=== PATIENT | female | born 1980 | race American Indian/Alaskan Native ===

== ENCOUNTER 2018-03-03 08:20 | Emergency (ER) | payer BC ==
[2018-03-03 08:28] VITALS: BP 130/67
[2018-03-03] MEDS ORDERED: TORADOL ONE (08:35)
[2018-03-03] MEDS ORDERED: NACL 0.9% 1000 ML 1,000 ML ONE (08:35)
[2018-03-03] MEDS ORDERED: ZOFRAN ONE (08:35)
[2018-03-03] MEDS ORDERED: TORADOL IV ONE (08:43)
[2018-03-03] MEDS ORDERED: ZOFRAN IV ONE (08:44)
[2018-03-03] MEDS ORDERED: NACL 0.9% 1000 ML 1,000 ML IV ONE (08:51)
[2018-03-03 09:41] LABS: Basophils # (Auto) 0.1 K/mm3 (0.0-0.1); Basophils % (Auto) 0.5 % (0.0-1.8); Eosinophils % (Auto) 0.1 % (0.0-4.3); Hematocrit 36.2 % (30.3-42.9); Hemoglobin 11.5 gm/dl (10.1-14.3); Lymphocytes # (Auto) 1.2 K/mm3 (1.2-5.4); Lymphocytes % (Auto) 11.6 % (13.4-35.0); Mean Corpuscular HGB Conc 32 % (30-34); Mean Corpuscular Volume 77 fl (79-97); Monocytes # (Auto) 0.4 K/mm3 (0.0-0.8); Monocytes % (Auto) 4.2 % (0.0-7.3); Platelet Count 317 K/mm3 (140-440); Red Blood Count 4.73 M/mm3 (3.65-5.03); Red Cell Distribution Width 13.9 % (13.2-15.2)
[2018-03-03 09:46] LABS: Mean Corpuscular Hemoglobin 24 pg (28-32)
[2018-03-03 10:02] LABS: Alanine Aminotransferase 8 units/L (7-56); Albumin 4.1 g/dL (3.9-5); BUN/Creatinine Ratio 23; Blood Urea Nitrogen 14 mg/dL (7-17); Calcium 8.5 mg/dL (8.4-10.2); Hemolysis Index 9
--- NOTE | 2018-03-03 12:46 | Emergency Department Report ---
Blank Doc - Documentation Documentation: 37-year-old female with a history of heavy painful periods presents to the hospital complaining of heavy and painful. It started yesterday. Pain acutely worsened 4:30 AM. Describes 10/10 intensity, pulling, constant, worse with palpation, no remitting factors. 6-7 episodes of vomiting since symptom onset. Told in the past her heavy periods could be due to uterine fibroids but patient has not had an ultrasound or followed up. Patient received Toradol, Zofran, normal saline prior to my evaluation reports the pain is 2/10 in intensity. Labs reviewed Orders: Ultrasound transvaginal/peelvic
--- NOTE | 2018-03-03 13:46 | Ultrasound Report ---
ULTRASOUND PELVIC COMPLETE ULTRASOUND TRANSVAGINAL HISTORY: Menorrhagia. COMPARISON: None. TECHNIQUE: Transabdominal and transvaginal ultrasound with color doppler interrogation. FINDINGS: Uterus: The uterus is anteverted and borderline enlarged measuring 10.7 x 5.7 x 6.6 cm. A 2.9 x 4.0 cm submucosal fibroid is identified in the posterior wall. A 1.7 x 1.6 cm submucosal fibroid is identified in the anterior wall. Normal cervix.. Endometrium: 3.2 mm. Right ovary: Not visualized. Left ovary: Not visualized. There is a large unilocular cyst in the left adnexa measuring up to 10.3 x 8.4 x 8.4 cm. This presumably represents a large left ovarian cyst. No pelvic fluid or mass is identified. Normal color doppler interrogation. IMPRESSION: Uterine fibroids. The ovaries are not visualized. There is a large cyst in the left adnexa which presumably represents an ovarian cyst.
--- NOTE | 2018-03-03 14:07 | Emergency Department Report ---
ED Female HPI - General Chief complaint: Abdominal Pain Stated complaint: ABDOMINAL PAIN Time Seen by Provider: 03/03/18 12:27 Source: patient Mode of arrival: Wheelchair Limitations: No Limitations - History of Present Illness Initial comments: This is a 37 y.o. female that presents with generalized abdominal pain and nausea and vomiting that started this morning around 0430. Menes started 2 days ago and reports only having severe abdominal pain during this time. States pain is 5/10 on scale and constant. Pain is worse with palpating. This morning she started to have nausea and vomiting with heavy vaginal bleeding. She was diagnosed with fibroids last year by [facility] but failed to follow-up. Denies fever, dizziness, SOB, chest pain. MD Complaint: pelvic pain -: This morning Location: suprapubic Radiation: non-radiating Severity: moderate Severity scale (0 -10): 5 Quality: sharp, aching Consistency: intermittent Improves with: medication Worsens with: movement Are you Now?: No Associated Symptoms: abdominal pain, nausea/vomiting. denies: vaginal discharge , vaginal bleeding, fever/chills, headaches, loss of appetite, dysuria, hematuria, rash, seizure, shortness of breath, syncope, weakness - Related Data Sexually active: Yes Previous Rx's Medication Instructions Recorded Last Taken Type Ibuprofen [Motrin 800 MG tab] 800 mg PO Q8HR PRN #20 tablet 03/03/18 Unknown Rx Allergies Allergy/AdvReac Type Severity Reaction Status Date / Time Penicillins Allergy Anaphylaxis Verified 03/03/18 08:41 ED Review of Systems ROS: Stated complaint: ABDOMINAL PAIN Other details as noted in HPI Constitutional: denies: chills, fever Respiratory: denies: cough, shortness of breath, wheezing Cardiovascular: denies: chest pain, palpitations Gastrointestinal: abdominal pain (generalized), nausea, vomiting. denies: diarrhea Neurological: denies: headache, weakness, paresthesias Psychiatric: denies: anxiety, depression ED Past Medical Hx - Past Medical History Previous Medical History?: Yes Additional medical history: Uterine Fibroids - Surgical History Past Surgical History?: No - Social History Smoking Status: Current Every Day Smoker Substance Use Type: None - Medications Home Medications: Home Medications Medication Instructions Recorded Confirmed Last Taken Type Ibuprofen [Motrin 800 MG tab] 800 mg PO Q8HR PRN #20 tablet 04/19/18 Unknown Rx ED Physical Exam - General Limitations: No Limitations General appearance: alert, in no apparent distress - Respiratory Respiratory exam: Present: normal lung sounds bilaterally. Absent: respiratory distress, wheezes, rales, rhonchi, stridor, accessory muscle use - Cardiovascular Cardiovascular Exam: Present: regular rate, normal rhythm, normal heart sounds. Absent: systolic murmur, diastolic murmur, rubs, gallop - GI/Abdominal GI/Abdominal exam: Present: soft, tenderness (RLQ), normal bowel sounds. Absent : distended, guarding, rebound, rigid, organomegaly, mass - Neurological Exam Neurological exam: Present: alert, oriented X3, normal gait - Psychiatric Psychiatric exam: Present: normal affect, normal mood - Skin Skin exam: Present: warm, dry, intact, normal color. Absent: rash ED Course Vital Signs 03/03/18 08:22 Temperature 97.8 F Pulse Rate 63 Respiratory 22 Rate Blood Pressure 130/67 O2 Sat by Pulse 98 Oximetry ED Medical Decision Making - Lab Data Result diagrams: 03/03/18 09:20 03/03/18 09:15 - Radiology Data Radiology results: report reviewed Uterine fibroids. The ovaries are not visualized. There is a large cyst in the left adnexa which presumably represents an ovarian cyst. - Medical Decision Making This is a 37 y.o. Female presents with generalized abdominal pain that started this morning. Patient was examined by me. She is stable and in no distress. Vitals stable. Obtained CMP, CBC, HCG quant. All unremarkable. Transvaginal US obtained and read by radiologist. Uterine fibroids. The ovaries are not visualized. There is a large cyst in the left adnexa which presumably represents an ovarian cyst. Informed of results and advised to f/u with [facility]. Start ibuprofen 800 mg po q6h prn. Discussed ER plan and prevention options. Discharged home. Follow up with [facility]. Critical care attestation.: If time is entered above; I have spent that time in minutes in the direct care of this critically ill patient, excluding procedure time. ED Disposition Clinical Impression: Lower abdominal pain Uterine fibroid Qualifiers: Uterine leiomyoma location: submucous Qualified Code(s): D25.0 - Submucous leiomyoma of uterus Disposition: - TO HOME OR SELFCARE Is pt being admited?: No Does the pt Need Aspirin: No Condition: Stable Instructions: Abdominal Pain (ED), Uterine Fibroids (ED) Additional Instructions: Take ibuprofen every 6 hours as needed for pain. Follow up with [facility] in 2-3 days. Prescriptions: Ibuprofen [Motrin 800 MG tab] 800 mg PO Q8HR PRN #20 tablet PRN Reason: Pain Referrals: [facility] [Provider Group] - 3-5 Days [facility] [Provider Group] - 3-5 Days Time of Disposition: 14:29 Print Language: WOLOF
== END 2018-03-03 14:46 | disposition home or self-care (01) ==
LOC: ED 08:20
DX: D25.0 Submucous leiomyoma of uterus (principal); R10.30 Lower abdominal pain, unspecified; F17.200 Nicotine dependence, unspecified, uncomplicated
CPT/HCPCS: 36415; 76830; 76856; 80053; 84703; 85025; 96361; 96374; 96375; 99284; J1885; J2405; J7030

== ENCOUNTER 2018-07-09 16:08 | Inpatient (IN) | payer BC ==
[2018-07-09] MEDS ORDERED: NACL 0.9% 1000 ML 1,000 ML IV ONE (16:50)
[2018-07-09] MEDS ORDERED: ZOFRAN IV ONE (17:06)
[2018-07-09] MEDS ORDERED: DILAUDID IV ONE (17:06)
--- NOTE | 2018-07-09 17:10 | Emergency Department Report ---
ED General Adult HPI - General Chief complaint: Abdominal Pain Stated complaint: ABD PAIN Time Seen by Provider: 07/09/18 16:57 Source: patient, RN notes reviewed, old records reviewed Mode of arrival: Wheelchair Limitations: Other (patient currently is a poor historian) - History of Present Illness Initial comments: This is a 37-year-old female who is not known to this provider previously. Her past medical history includes uterine fibroids, left-sided ovarian cyst, and she reports left-sided cyst surgery in May at [facility]. She is not sure exactly what she had done. She presents to the ER with complaint of sudden onset diffuse lower abdominal pain. She indicates the pain is sharp and radiates to the back. She has some nausea and vomiting, and cannot describe exacerbating or relieving factors. -: Sudden Location: abdomen, pelvis Radiation: back Quality: burning, stabbing, aching Consistency: constant Improves with: other Worsens with: other Associated Symptoms: loss of appetite, malaise, nausea/vomiting, weakness, other. denies: confusion, chest pain, cough, diaphoresis, fever/chills, headaches, rash, seizure, shortness of breath, syncope - Related Data Previous Rx's Medication Instructions Recorded Last Taken Type Ibuprofen [Motrin 800 MG tab] 800 mg PO Q8HR PRN #20 tablet 03/03/18 Unknown Rx Allergies Allergy/AdvReac Type Severity Reaction Status Date / Time Penicillins Allergy Anaphylaxis Verified 03/03/18 08:41 ED Review of Systems ROS: Stated complaint: ABD PAIN Other details as noted in HPI Comment: All other systems reviewed and negative ED Past Medical Hx - Past Medical History Previous Medical History?: No Additional medical history: Uterine Fibroids - Surgical History Past Surgical History?: Yes Additional Surgical History: Ovarian cyst and uterine fibroid removal surgery 2018 - Social History Smoking Status: Current Every Day Smoker Substance Use Type: None - Medications Home Medications: Home Medications Medication Instructions Recorded Confirmed Last Taken Type Ibuprofen [Motrin 800 MG tab] 800 mg PO Q8HR PRN #20 tablet 03/03/18 Unknown Rx ED Physical Exam - General Limitations: Physical Limitation General appearance: alert, in distress - Head Head exam: Present: atraumatic, normocephalic - Eye Eye exam: Present: normal appearance, EOMI. Absent: nystagmus - ENT ENT exam: Present: normal exam, normal orophraynx, mucous membranes moist, normal external ear exam - Neck Neck exam: Present: normal inspection, full ROM. Absent: tenderness, meningismus - Respiratory Respiratory exam: Present: normal lung sounds bilaterally. Absent: respiratory distress - Cardiovascular Cardiovascular Exam: Present: regular rate, normal rhythm, normal heart sounds. Absent: bradycardia, tachycardia, irregular rhythm, systolic murmur, diastolic murmur, rubs, gallop - GI/Abdominal GI/Abdominal exam: Present: soft. Absent: distended, tenderness, guarding, rebound, rigid, pulsatile mass - Extremities Exam Extremities exam: Present: normal inspection, full ROM, normal capillary refill , other (2+ pulses noted in the bilateral upper, lower extremities. Compartments soft. No long bony tenderness. The pelvis is stable.). Absent: tenderness, pedal edema, joint swelling, calf tenderness - Back Exam Back exam: Present: normal inspection, full ROM. Absent: tenderness, CVA tenderness (R), paraspinal tenderness, vertebral tenderness - Neurological Exam Neurological exam: Present: alert, oriented X3, CN II-XII intact, other ( Extraocular movements intact. Tongue midline. No facial droop. Facial sensation intact to light touch in the V1, V2, V3 distribution bilaterally. 5 and 5 strength in 4 extremities.. Sensation is intact to light touch in 4 extremities.). Absent: motor sensory deficit - Psychiatric Psychiatric exam: Present: anxious - Skin Skin exam: Present: warm, dry, intact, normal color. Absent: rash ED Course Vital Signs 07/09/18 07/09/18 07/09/18 16:21 17:19 17:20 Temperature 98.6 F 97.8 F Pulse Rate 69 67 Respiratory 19 17 Rate Blood Pressure 120/93 Blood Pressure 131/76 [Right] O2 Sat by Pulse 100 100 100 Oximetry 07/09/18 07/09/18 07/09/18 18:51 20:00 20:10 Temperature 98.2 F Pulse Rate 74 68 60 Respiratory 17 15 32 H Rate Blood Pressure 130/74 124/73 Blood Pressure 142/71 [Right] O2 Sat by Pulse 100 99 99 Oximetry 07/09/18 20:20 Temperature Pulse Rate 58 L Respiratory 28 H Rate Blood Pressure 124/73 Blood Pressure [Right] O2 Sat by Pulse 100 Oximetry - Reevaluation(s) Reevaluation #1: 07/09/18 17:09 Differential diagnosis, including but not limited to: Ovarian cysts, ruptured cyst, fibroids, dysfunctional uterine bleeding, ovarian torsion, small bowel obstruction Assessment and plan: 37-year-old female currently reported vaginal bleeding with diffuse abdominal pain, no tenderness, known history of fibroids, ovarian cyst. We will attempt to obtain her old medical records and surgical history. Pelvic ultrasound is pending at this time, CT scan of the abdomen and pelvis is pending at this time, we will perform a gynecologic examination after her symptoms are better controlled. Reevaluation #2: 07/09/18 19:51 Ultrasound shows no evidence of right-sided ovarian torsion. The patient's prior medical records are reviewed and appreciated. She had a left-sided cystectomy, salpingectomy and oophorectomy. She also had lysis of adhesions. She continues to have significant pain and discomfort. Her CT scan shows the following findings: Areas of decreased density within the uterus which may represent uterine fibroids this patient with a history of fibroids.. 2. Free fluid in the pelvis/cul-de-sac. 3. Cystic appearing structure in the deep pelvis on the left lateral and posterior to the rectum. There is no definite evidence of enhancement or adjacent inflammatory change to definitively suggest the presence of abscess. However, in the proper clinical setting an abscess would need to be considered. An endometrial implant would also need to be considered. Patient will be covered empirically with Levaquin and Flagyl. I have discussed the case with gynecology and Gen. surgery on-call, and they will follow in consultation. Case was admitted to the hospital physician, Dr. Wyatt; he accepted the patient to the medical service. Additional pain medication as ordered. - Consultations Consultation #1: 07/09/18 19:22 Dr Bo of [facility] and Dr Strickland of general surgery agree to follow in consultation hospitalist paged blood cultures lactic acid, emperic antibiotics ordered. does not meet sirs/sepsis criteria at this time ED Medical Decision Making - Lab Data Result diagrams: 07/09/18 17:00 07/09/18 17:00 Vital Signs 07/09/18 16:21 Temperature 98.6 F Pulse Rate 69 Blood Pressure 120/93 O2 Sat by Pulse 100 Oximetry Vital Signs 07/09/18 07/09/18 07/09/18 16:21 17:19 17:20 Temperature 98.6 F 97.8 F Pulse Rate 69 67 Respiratory 19 17 Rate Blood Pressure 120/93 Blood Pressure 131/76 [Right] O2 Sat by Pulse 100 100 100 Oximetry Lab Results 07/09/18 07/09/18 07/09/18 Range/Units 17:00 17:00 17:16 WBC 10.2 (4.5-11.0) K/mm3 RBC 5.03 (3.65-5.03) M/mm3 Hgb 12.4 (10.1-14.3) gm/dl Hct 39.0 (30.3-42.9) % MCV 78 L (79-97) fl MCH 25 L (28-32) pg MCHC 32 (30-34) % RDW 14.4 (13.2-15.2) % Plt Count 367 (140-440) K/mm3 Sodium 139 (137-145) mmol/L Potassium 3.7 (3.6-5.0) mmol/L Chloride 102.0 (98-107) mmol/L Carbon Dioxide 22 (22-30) mmol/L Anion Gap 19 mmol/L BUN 10 (7-17) mg/dL Creatinine 0.6 L (0.7-1.2) mg/dL Estimated GFR > 60 ml/min BUN/Creatinine Ratio 17 % Glucose 118 H (65-100) mg/dL Calcium 9.2 (8.4-10.2) mg/dL Total Bilirubin 0.30 (0.1-1.2) mg/dL AST 15 (5-40) units/L ALT 10 (7-56) units/L Alkaline Phosphatase 58 (35-129) units/L Total Protein 7.8 (6.3-8.2) g/dL Albumin 4.3 (3.9-5) g/dL Albumin/Globulin Ratio 1.2 % HCG, Quant < 2 (0-4) mIU/mL Blood Type 07/09/18 Range/Units 17:16 WBC (4.5-11.0) K/mm3 RBC (3.65-5.03) M/mm3 Hgb (10.1-14.3) gm/dl Hct (30.3-42.9) % MCV (79-97) fl MCH (28-32) pg MCHC (30-34) % RDW (13.2-15.2) % Plt Count (140-440) K/mm3 Sodium (137-145) mmol/L Potassium (3.6-5.0) mmol/L Chloride (98-107) mmol/L Carbon Dioxide (22-30) mmol/L Anion Gap mmol/L BUN (7-17) mg/dL Creatinine (0.7-1.2) mg/dL Estimated GFR ml/min BUN/Creatinine Ratio % Glucose (65-100) mg/dL Calcium (8.4-10.2) mg/dL Total Bilirubin (0.1-1.2) mg/dL AST (5-40) units/L ALT (7-56) units/L Alkaline Phosphatase (35-129) units/L Total Protein (6.3-8.2) g/dL Albumin (3.9-5) g/dL Albumin/Globulin Ratio % HCG, Quant (0-4) mIU/mL Blood Type AB POSITIVE - Radiology Data Radiology results: report reviewed, image reviewed Ordering Physician: JON DIGGS MD Date of Service: 07/09/18 Procedure(s): US transvaginal Accession Number(s): [id number] cc: JON DIGGS MD FINAL REPORT EXAM: US TRANSVAGINAL HISTORY: pelvic pain history of uterine fibroids. Recent left oophorectomy. TECHNIQUE: Transvaginal grayscale, color flow and Doppler waveform imaging of the pelvis was performed. Comparison: Transabdominal study also performed today and CT abdomen and pelvis also performed today FINDINGS: The uterus measures 11.2 centimeters x 5.8 centimeters x 6.6 centimeters. There is demonstration of multiple intrauterine masses most consistent with the appearance of fibroids. The largest measures approximately 3.2 centimeters in size. The right ovary measures 3 centimeters x 1.9 centimeters x 1.7 centimeters and is unremarkable in appearance. Arterial flow is demonstrated in the right ovary utilizing color flow and Doppler waveform imaging. The left ovary is absent. Free fluid is demonstrated in the cul-de-sac. IMPRESSION: 1. Fibroid appearance of the uterus. 2. The right ovary is unremarkable in appearance. No ultrasound evidence of right ovarian torsion. 3. The left ovary is surgically absent. 4. Free fluid is demonstrated in the cul-de-sac. [facility] [address] [place] [address] Cat Scan Report Signed Patient: KAITLIN RENEE MR#: [id number] : 1980 Acct:[id number] Age/Sex: 37 / F ADM Date: 07/09/18 Loc: ED Attending Dr: Ordering Physician: JON DIGGS MD Date of Service: 07/09/18 Procedure(s): CT abdomen pelvis w con Accession Number(s): [id number] cc: JON DIGGS MD FINAL REPORT EXAM: CT ABDOMEN PELVIS W CON HISTORY: abdominal pain history of recent left oophorectomy and treatment for large pelvic cyst. History of uterine fibroids. No known history of endometriosis. No clinical evidence of infection. TECHNIQUE: Following IV administration of 100 cc of Omnipaque 300 axial helical imaging was performed through the abdomen and pelvis with sagittal and coronal reformatted images obtained. Delayed axial helical imaging was also performed through the abdomen and pelvis. Comparison: Ultrasound pelvis also performed today FINDINGS: The lung bases are without infiltrate, pneumothorax or pleural fluid collection. The heart is normal size. There is evidence of fatty infiltration/steatosis of the liver. The spleen, pancreas and kidneys and adrenal glands are unremarkable in appearance. There is no evidence of hydronephrosis nor urinary tract calculi. Bowel is normal caliber. The appendix is normal in appearance. There is a small amount of free fluid in the pelvis/cul-de-sac. There is no evidence of pneumoperitoneum. The abdominal aorta is normal caliber. There is no evidence of pathologic intra-abdominal adenopathy by CT size criteria. There are areas of decreased density within the uterus. There is an approximately 4.7 centimeter (AP) by 3.7 centimeter (lateral) by 3.4 centimeter (craniocaudal) cystic-appearing structure in the deep left pelvis lateral and posterior to the rectum. There is no evidence of marginal enhancement or stranding of the adjacent fat to definitively suggest the presence of abscess. The bony structures are unremarkable in appearance. IMPRESSION: 1. Areas of decreased density within the uterus which may represent uterine fibroids this patient with a history of fibroids.. 2. Free fluid in the pelvis/cul-de-sac. 3. Cystic appearing structure in the deep pelvis on the left lateral and posterior to the rectum. There is no definite evidence of enhancement or adjacent inflammatory change to definitively suggest the presence of abscess. However, in the proper clinical setting an abscess would need to be considered. An endometrial implant would also need to be considered. MRI pelvis would be helpful for further evaluation of the above findings. 4. Evidence of fatty infiltration/steatosis of the liver. This study discussed with Dr. Diggs at 7:05 p.m. July 09, 2018. Transcribed By: ED Dictated By: NAVDEEP CHAVEZ MD Electronically Authenticated By: NAVDEEP CHAVEZ MD Signed Date/Time: 07/09/181923 Critical care attestation.: If time is entered above; I have spent that time in minutes in the direct care of this critically ill patient, excluding procedure time. ED Disposition Clinical Impression: Abdominal pain Qualifiers: Abdominal location: unspecified location Qualified Code(s): R10.9 - Unspecified abdominal pain Disposition: OP ADMIT IP TO THIS HOSP Is pt being admited?: Yes Does the pt Need Aspirin: No Condition: Good
[2018-07-09 17:11] LABS: Hemoglobin 12.4 gm/dl (10.1-14.3); Mean Corpuscular HGB Conc 32 % (30-34); Mean Corpuscular Volume 78 fl (79-97); Platelet Count 367 K/mm3 (140-440); Red Blood Count 5.03 M/mm3 (3.65-5.03); Red Cell Distribution Width 14.4 % (13.2-15.2)
[2018-07-09 17:14] LABS: Mean Corpuscular Hemoglobin 25 pg (28-32)
[2018-07-09 17:22] LABS: Alanine Aminotransferase 10 units/L (7-56); Albumin 4.3 g/dL (3.9-5); BUN/Creatinine Ratio 17; Blood Urea Nitrogen 10 mg/dL (7-17); Calcium 9.2 mg/dL (8.4-10.2); Hemolysis Index 12
[2018-07-09] MEDS ORDERED: SUBLIMAZE IV ONE (19:11)
[2018-07-09] MEDS ORDERED: LEVAQUIN 500MG/100ML 500 MG/100 ML BAG IV ONE (19:17)
--- NOTE | 2018-07-09 19:25 | Cat Scan Report ---
FINAL REPORT EXAM: CT ABDOMEN PELVIS W CON HISTORY: abdominal pain history of recent left oophorectomy and treatment for large pelvic cyst. History of uterine fibroids. No known history of endometriosis. No clinical evidence of infection. TECHNIQUE: Following IV administration of 100 cc of Omnipaque 300 axial helical imaging was performed through the abdomen and pelvis with sagittal and coronal reformatted images obtained. Delayed axial helical imaging was also performed through the abdomen and pelvis. Comparison: Ultrasound pelvis also performed today FINDINGS: The lung bases are without infiltrate, pneumothorax or pleural fluid collection. The heart is normal size. There is evidence of fatty infiltration/steatosis of the liver. The spleen, pancreas and kidneys and adrenal glands are unremarkable in appearance. There is no evidence of hydronephrosis nor urinary tract calculi. Bowel is normal caliber. The appendix is normal in appearance. There is a small amount of free fluid in the pelvis/cul-de-sac. There is no evidence of pneumoperitoneum. The abdominal aorta is normal caliber. There is no evidence of pathologic intra-abdominal adenopathy by CT size criteria. There are areas of decreased density within the uterus. There is an approximately 4.7 centimeter (AP) by 3.7 centimeter (lateral) by 3.4 centimeter (craniocaudal) cystic-appearing structure in the deep left pelvis lateral and posterior to the rectum. There is no evidence of marginal enhancement or stranding of the adjacent fat to definitively suggest the presence of abscess. The bony structures are unremarkable in appearance. IMPRESSION: 1. Areas of decreased density within the uterus which may represent uterine fibroids this patient with a history of fibroids.. 2. Free fluid in the pelvis/cul-de-sac. 3. Cystic appearing structure in the deep pelvis on the left lateral and posterior to the rectum. There is no definite evidence of enhancement or adjacent inflammatory change to definitively suggest the presence of abscess. However, in the proper clinical setting an abscess would need to be considered. An endometrial implant would also need to be considered. MRI pelvis would be helpful for further evaluation of the above findings. 4. Evidence of fatty infiltration/steatosis of the liver. This study discussed with Dr. Diggs at 7:05 p.m. July 09, 2018.
--- NOTE | 2018-07-09 19:28 | Ultrasound Report ---
FINAL REPORT EXAM: US TRANSVAGINAL HISTORY: pelvic pain history of uterine fibroids. Recent left oophorectomy. TECHNIQUE: Transvaginal grayscale, color flow and Doppler waveform imaging of the pelvis was performed. Comparison: Transabdominal study also performed today and CT abdomen and pelvis also performed today FINDINGS: The uterus measures 11.2 centimeters x 5.8 centimeters x 6.6 centimeters. There is demonstration of multiple intrauterine masses most consistent with the appearance of fibroids. The largest measures approximately 3.2 centimeters in size. The right ovary measures 3 centimeters x 1.9 centimeters x 1.7 centimeters and is unremarkable in appearance. Arterial flow is demonstrated in the right ovary utilizing color flow and Doppler waveform imaging. The left ovary is absent. Free fluid is demonstrated in the cul-de-sac. IMPRESSION: 1. Fibroid appearance of the uterus. 2. The right ovary is unremarkable in appearance. No ultrasound evidence of right ovarian torsion. 3. The left ovary is surgically absent. 4. Free fluid is demonstrated in the cul-de-sac.
--- NOTE | 2018-07-09 19:32 | Ultrasound Report ---
FINAL REPORT EXAM: US PELVIS DUPLEX DOPPLER COMP HISTORY: pelvic pain status post left oophorectomy. TECHNIQUE: Transabdominal grayscale and color-flow imaging of the pelvis was performed. Transvaginal study also performed today FINDINGS: The urinary bladder is moderately distended and unremarkable in appearance. The uterus measures 11.2 centimeters x 5.8 centimeters x 6.6 centimeters and is fibroid in appearance. The largest fibroid measures approximately 3.2 centimeters in size. The ovaries are not visualized on the transabdominal study. IMPRESSION: 1. Fibroid uterus. 2. The ovaries are not visualized on the transabdominal study.
[2018-07-09 19:59] LABS: Band Neutrophils # (Manual) 0.1 K/mm3; Basophils % (Manual) 0 % (0.0-1.8); Total Cells Counted 100
[2018-07-09 20:00] LABS: Anisocytosis 1+; Platelet Estimate Consistent w Auto
[2018-07-09] MEDS ORDERED: FLAGYL 500 MG/100 ML 500 MG/100 ML BAG IV SCH ×2 (20:00→22:00)
--- NOTE | 2018-07-09 20:55 | History and Physical Report ---
History of Present Illness Date of examination: 07/09/18 Date of admission: 07/09/18 19:52 Chief complaint: CC: Severe Abdominal pain for 1 day History of present illness: History of Present Illness: 37 y/o female comes in for sudden onset of abdominal pain for 1 day.Pain is 10/ 10.Sharp in nature.Nausea present.Patient had L side Ovarian Cyst measuring 10 [id number] removal in May 2018.Also uterine fibroid removal.Patient has severe Suprapubic pain.No Exacerbating or relieving factors. Location: abdomen, pelvis Radiation: back Quality: burning, stabbing, aching Consistency: constant Improves with: other Worsens with: other Associated Symptoms: loss of appetite, malaise, nausea/vomiting, weakness, other. denies: confusion, chest pain, cough, diaphoresis, fever/chills, headaches, rash, seizure, shortness of breath, syncope Past Medical History Previous Medical History?: No Additional medical history: Uterine Fibroids Surgical History Past Surgical History?: Yes Additional Surgical History: Ovarian cyst and uterine fibroid removal surgery 2018 Social History Smoking Status: Current Every Day Smoker Substance Use Type: None Medications Home Medications: Home Medications Medication Instructions Recorded Confirmed Last Taken Type Ibuprofen [Motrin 800 MG tab] 800 mg PO Q8HR PRN #20 tablet 03/03/18 Unknown Rx Review of Systems ROS: Stated complaint: ABD PAIN Other details as noted in HPI Comment: All other systems reviewed and negative Medications and Allergies Allergies Allergy/AdvReac Type Severity Reaction Status Date / Time Penicillins Allergy Anaphylaxis Verified 03/03/18 08:41 Home Medications Medication Instructions Recorded Confirmed Last Taken Type Ibuprofen [Motrin 800 MG tab] 800 mg PO Q8HR PRN #20 tablet 03/03/18 Unknown Rx Active Meds: Active Medications Metronidazole (Flagyl 500 Mg/100 Ml) 500 mg in 100 mls @ 200 mls/hr IV ONCE SUYAPA ; Protocol Last Admin: 07/09/18 20:00 Dose: 200 mls/hr Exam - Constitutional Vitals: Temp Pulse Resp BP Pulse Ox 98.2 F 68 15 130/74 99 07/09/18 18:51 07/09/18 20:00 07/09/18 20:00 07/09/18 20:00 07/09/18 20:00 General appearance: Present: mild distress, well-nourished - EENT Eyes: Present: PERRL ENT: hearing intact, clear oral mucosa - Neck Neck: Present: supple, normal ROM - Respiratory Respiratory effort: normal Respiratory: bilateral: CTA - Cardiovascular Heart rate: 78 Rhythm: regular Heart Sounds: Present: S1 & S2. Absent: rub, click - Extremities Extremities: no ischemia, pulses intact, pulses symmetrical, No edema Peripheral Pulses: within normal limits - Abdominal General gastrointestinal: Present: soft, tender, non-distended, normal bowel sounds Female genitourinary: Present: normal - Rectal Rectal Exam: deferred - Integumentary Integumentary: Present: clear, warm, dry - Musculoskeletal Musculoskeletal: gait normal, strength equal bilaterally - Psychiatric Psychiatric: appropriate mood/affect, intact judgment & insight - Neurologic Neurologic: CNII-XII intact, moves all extremities - Allied Health Allied health notes reviewed: nursing, case management Results - Labs CBC & Chem 7: 07/09/18 17:00 07/09/18 17:00 Labs: Laboratory Last Values WBC 10.2 K/mm3 (4.5-11.0) 07/09/18 17:00 RBC 5.03 M/mm3 (3.65-5.03) 07/09/18 17:00 Hgb 12.4 gm/dl (10.1-14.3) 07/09/18 17:00 Hct 39.0 % (30.3-42.9) 07/09/18 17:00 MCV 78 fl (79-97) L 07/09/18 17:00 MCH 25 pg (28-32) L 07/09/18 17:00 MCHC 32 % (30-34) 07/09/18 17:00 RDW 14.4 % (13.2-15.2) 07/09/18 17:00 Plt Count 367 K/mm3 (140-440) 07/09/18 17:00 Add Manual Diff Complete 07/09/18 17:00 Total Counted 100 07/09/18 17:00 Seg Neuts % (Manual) 76.0 % (40.0-70.0) H 07/09/18 17:00 Band Neutrophils % 1.0 % 07/09/18 17:00 Lymphocytes % (Manual) 18.0 % (13.4-35.0) 07/09/18 17:00 Reactive Lymphs % (Man) 0 % 07/09/18 17:00 Monocytes % (Manual) 2.0 % (0.0-7.3) 07/09/18 17:00 Eosinophils % (Manual) 3.0 % (0.0-4.3) 07/09/18 17:00 Basophils % (Manual) 0 % (0.0-1.8) 07/09/18 17:00 Metamyelocytes % 0 % 07/09/18 17:00 Myelocytes % 0 % 07/09/18 17:00 Promyelocytes % 0 % 07/09/18 17:00 Blast Cells % 0 % 07/09/18 17:00 Nucleated RBC % Not Reportable 07/09/18 17:00 Seg Neutrophils # Man 7.8 K/mm3 (1.8-7.7) H 07/09/18 17:00 Band Neutrophils # 0.1 K/mm3 07/09/18 17:00 Lymphocytes # (Manual) 1.8 K/mm3 (1.2-5.4) 07/09/18 17:00 Abs React Lymphs (Man) 0.0 K/mm3 07/09/18 17:00 Monocytes # (Manual) 0.2 K/mm3 (0.0-0.8) 07/09/18 17:00 Eosinophils # (Manual) 0.3 K/mm3 (0.0-0.4) 07/09/18 17:00 Basophils # (Manual) 0.0 K/mm3 (0.0-0.1) 07/09/18 17:00 Metamyelocytes # 0.0 K/mm3 07/09/18 17:00 Myelocytes # 0.0 K/mm3 07/09/18 17:00 Promyelocytes # 0.0 K/mm3 07/09/18 17:00 Blast Cells # 0.0 K/mm3 07/09/18 17:00 WBC Morphology Not Reportable 07/09/18 17:00 Hypersegmented Neuts Not Reportable 07/09/18 17:00 Hyposegmented Neuts Not Reportable 07/09/18 17:00 Hypogranular Neuts Not Reportable 07/09/18 17:00 Smudge Cells Not Reportable 07/09/18 17:00 Toxic Granulation Not Reportable 07/09/18 17:00 Toxic Vacuolation Not Reportable 07/09/18 17:00 Dohle Bodies Not Reportable 07/09/18 17:00 Pelger-Huet Anomaly Not Reportable 07/09/18 17:00 Venus Rods Not Reportable 07/09/18 17:00 Platelet Estimate Consistent w auto 07/09/18 17:00 Clumped Platelets Not Reportable 07/09/18 17:00 Plt Clumps, EDTA Not Reportable 07/09/18 17:00 Large Platelets Not Reportable 07/09/18 17:00 Giant Platelets Not Reportable 07/09/18 17:00 Platelet Satelliting Not Reportable 07/09/18 17:00 Plt Morphology Comment Not Reportable 07/09/18 17:00 RBC Morphology Not Reportable 07/09/18 17:00 Dimorphic RBCs Not Reportable 07/09/18 17:00 Polychromasia Not Reportable 07/09/18 17:00 Hypochromasia Not Reportable 07/09/18 17:00 Poikilocytosis Not Reportable 07/09/18 17:00 Anisocytosis 1+ 07/09/18 17:00 Microcytosis Not Reportable 07/09/18 17:00 Macrocytosis Not Reportable 07/09/18 17:00 Spherocytes Not Reportable 07/09/18 17:00 Pappenheimer Bodies Not Reportable 07/09/18 17:00 Sickle Cells Not Reportable 07/09/18 17:00 Target Cells Not Reportable 07/09/18 17:00 Tear Drop Cells Not Reportable 07/09/18 17:00 Ovalocytes Not Reportable 07/09/18 17:00 Helmet Cells Not Reportable 07/09/18 17:00 [place] Bodies Not Reportable 07/09/18 17:00 [place] Rings Not Reportable 07/09/18 17:00 [place] Cells Not Reportable 07/09/18 17:00 Bite Cells Not Reportable 07/09/18 17:00 Crenated Cell Not Reportable 07/09/18 17:00 Elliptocytes Not Reportable 07/09/18 17:00 Acanthocytes (Spur) Not Reportable 07/09/18 17:00 Rouleaux Not Reportable 07/09/18 17:00 Hemoglobin C Crystals Not Reportable 07/09/18 17:00 Schistocytes Not Reportable 07/09/18 17:00 Malaria parasites Not Reportable 07/09/18 17:00 Jaron Bodies Not Reportable 07/09/18 17:00 Hem Pathologist Commnt No 07/09/18 17:00 Sodium 139 mmol/L (137-145) 07/09/18 17:00 Potassium 3.7 mmol/L (3.6-5.0) 07/09/18 17:00 Chloride 102.0 mmol/L (98-107) 07/09/18 17:00 Carbon Dioxide 22 mmol/L (22-30) 07/09/18 17:00 Anion Gap 19 mmol/L 07/09/18 17:00 BUN 10 mg/dL (7-17) 07/09/18 17:00 Creatinine 0.6 mg/dL (0.7-1.2) L 07/09/18 17:00 Estimated GFR > 60 ml/min 07/09/18 17:00 BUN/Creatinine Ratio 17 % 07/09/18 17:00 Glucose 118 mg/dL (65-100) H 07/09/18 17:00 Lactic Acid 1.40 mmol/L (0.7-2.0) 07/09/18 19:21 Calcium 9.2 mg/dL (8.4-10.2) 07/09/18 17:00 Total Bilirubin 0.30 mg/dL (0.1-1.2) 07/09/18 17:00 AST 15 units/L (5-40) 07/09/18 17:00 ALT 10 units/L (7-56) 07/09/18 17:00 Alkaline Phosphatase 58 units/L (35-129) 07/09/18 17:00 Total Protein 7.8 g/dL (6.3-8.2) 07/09/18 17:00 Albumin 4.3 g/dL (3.9-5) 07/09/18 17:00 Albumin/Globulin Ratio 1.2 % 07/09/18 17:00 HCG, Quant < 2 mIU/mL (0-4) 07/09/18 17:16 Blood Type AB POSITIVE 07/09/18 17:16 Antibody Screen Negative 07/09/18 17:16 - Imaging and Cardiology Imaging and Cardiology: CT abd/pelvis IMPRESSION: 1. Areas of decreased density within the uterus which may represent uterine fibroids this patient with a history of fibroids.. 2. Free fluid in the pelvis/cul-de-sac. 3. Cystic appearing structure in the deep pelvis on the left lateral and posterior to the rectum. There is no definite evidence of enhancement or adjacent inflammatory change to definitively suggest the presence of abscess. However, in the proper clinical setting an abscess would need to be considered. An endometrial implant would also need to be considered. MRI pelvis would be helpful for further evaluation of the above findings. 4. Evidence of fatty infiltration/steatosis of the liver. Assessment and Plan Advance Directives: Yes (Full code) VTE prophylaxis?: Chemical Plan of care discussed with patient/family: Yes - Patient Problems (1) Pelvic abscess Current Visit: Yes Status: Acute Plan to address problem: Possible Abscess --Given the recent surgery IV Abx Surgery consults and Staff Editor consult MRI pelvis ordered Pain management (2) Abdominal pain Current Visit: Yes Status: Acute Qualifiers: Abdominal location: unspecified location Qualified Code(s): R10.9 - Unspecified abdominal pain Plan to address problem: Pain control (3) DVT prophylaxis Current Visit: Yes Status: Acute Plan to address problem: Lovenox 40 mg SQ qd
--- NOTE | 2018-07-09 21:20 | Consultation ---
History of Present Illness Consult date: 07/09/18 Requesting physician: JON MURRAY Reason for consult: pelvic pain History of present illness: Pt is a 37yo BF G0 LMP 2 days ago presents to [facility] ER complaining of severe pelvic pain that started with her menstrual cycle. She had a previous Left SalpingoOophorectomy 05/20/18 at [place] and was doing well until 2 days ago. 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 History: fibroids Social history: no significant social history Medications and Allergies Allergies Allergy/AdvReac Type Severity Reaction Status Date / Time Penicillins Allergy Anaphylaxis Verified 03/03/18 08:41 Home Medications Medication Instructions Recorded Confirmed Last Taken Type Ibuprofen [Motrin 800 MG tab] 800 mg PO Q8HR PRN #20 tablet 03/03/18 Unknown Rx Active Meds: Active Medications Metronidazole (Flagyl 500 Mg/100 Ml) 500 mg in 100 mls @ 200 mls/hr IV ONCE SUYAPA ; Protocol Last Admin: 07/09/18 20:00 Dose: 200 mls/hr Review of Systems All systems: negative - Vital Signs Vital signs: Vital Signs Temp Pulse BP Pulse Ox 98.6 F 69 120/93 100 07/09/18 16:21 07/09/18 16:21 07/09/18 16:21 07/09/18 16:21 Temp Pulse Resp BP Pulse Ox 98.2 F 68 15 130/74 99 07/09/18 18:51 07/09/18 20:00 07/09/18 20:00 07/09/18 20:00 07/09/18 20:00 - Physical Exam Breasts: Positive: deferred Cardiovascular: Regular rate Lungs: Positive: Clear to auscultation Abdomen: Positive: normal appearance, tenderness Uterus: Positive: other (deferred) Adnexa: left: tenderness Extremities: Positive: normal Results Result Diagrams: 07/09/18 17:00 07/09/18 17:00 Abnormal lab results 07/09/18 07/09/18 Range/Units 17:00 17:00 MCV 78 L (79-97) fl MCH 25 L (28-32) pg Seg Neuts % (Manual) 76.0 H (40.0-70.0) % Seg Neutrophils # Man 7.8 H (1.8-7.7) K/mm3 Creatinine 0.6 L (0.7-1.2) mg/dL Glucose 118 H (65-100) mg/dL All other labs normal. Ultrasound: report reviewed CT scan - pelvis: report reviewed Assessment and Plan - Patient Problems (1) Abdominal pain Onset Date: 07/09/18 Current Visit: Yes Status: Acute Qualifiers: Abdominal location: left lower quadrant Qualified Code(s): R10.32 - Left lower quadrant pain Plan to address problem: A: Abdominal pain - s/p Laproscopic LSO Suspected pelvic abscess P: Agree with admission for IV antibiotics and Observation Will follow with you. (2) Pelvic abscess Onset Date: 07/09/18 Current Visit: Yes Status: Suspected
[2018-07-09] MEDS ORDERED: SODIUM CHLORIDE FLUSH SYRINGE 10 ML IV PRN (21:36)
[2018-07-09] MEDS ORDERED: DILAUDID IV PRN (21:36)
[2018-07-09] MEDS ORDERED: TYLENOL PO PRN (21:36)
[2018-07-09] MEDS ORDERED: DILAUDID ONE (21:58)
[2018-07-09] MEDS ORDERED: ZOFRAN ONE (21:58)
[2018-07-09] MEDS: D5NS 1,000 ML IV SCH (22:00)
[2018-07-09] MEDS: PEPCID IV SCH (22:00)
[2018-07-09] MEDS: ZOFRAN IV PRN (22:00)
[2018-07-10] MEDS: MORPHINE IV PRN ×3 (00:13→09:38)
[2018-07-10] MEDS: ZOFRAN IV PRN (04:43)
[2018-07-10] MEDS: FLAGYL 500 MG/100 ML 500 MG/100 ML BAG IV SCH ×3 (06:00→22:28)
--- NOTE | 2018-07-10 09:36 | Progress Note ---
Assessment and Plan Assessment and plan: Patient is a 37 y/o female comes in for sudden onset of abdominal pain for 1 day. The pain is severe and 10/10, Sharp in nature and non radiating, it is associated with nausea Nausea present. Patient had L side Ovarian Cyst measuring 10 [id number] removal in May 2018 with also uterine fibroid removal. Patient No Exacerbating or relieving factors. imaging studies in the ED was possible abscess in the right clinical setting vs endometrial implant. 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 Tobacco use disorder * Counselling provided to quit. she verbalized understanding. Fatty liver * Dicussed with patient. * Outpatient follow up with GI and diet modification DVT/GI prophy PLAN DISCUSSED WITH PATIENT AND NURSING STAFF History Interval history: Patient seen and examined this am, she reports thrombing pain. reports that she had been doing well since her surgery till her regular menstrual period started a day ago. she notes that her surgery was due to this same type of pain Hospitalist Physical - Constitutional Vitals: Temp Pulse Resp BP Pulse Ox 98.1 F 56 L 18 114/65 100 07/10/18 08:00 07/10/18 08:01 07/10/18 08:00 07/10/18 08:00 07/10/18 08:01 General appearance: Present: mild distress, well-nourished - EENT Eyes: Present: PERRL, EOM intact ENT: hearing intact, clear oral mucosa, dentition normal - Neck Neck: Present: supple, normal ROM - Respiratory Respiratory: bilateral: CTA - Cardiovascular Rhythm: regular Heart Sounds: Present: S1 & S2. Absent: systolic murmur - Extremities Extremities: no ischemia, pulses intact, No edema, normal temperature, Full ROM Peripheral Pulses: within normal limits - Abdominal General gastrointestinal: soft, tender, non-distended, normal bowel sounds Localized gastrointestinal: guarding: diffuse - Integumentary Integumentary: Present: clear, warm, dry, normal turgor. Absent: erythema, jaundice - Psychiatric Psychiatric: appropriate mood/affect, intact judgment & insight - Neurologic Neurologic: CNII-XII intact, moves all extremities - Allied Health Allied health notes reviewed: nursing Results - Labs CBC & Chem 7: 07/09/18 17:00 07/09/18 17:00 Labs: Laboratory Last Values WBC 10.2 K/mm3 (4.5-11.0) 07/09/18 17:00 RBC 5.03 M/mm3 (3.65-5.03) 07/09/18 17:00 Hgb 12.4 gm/dl (10.1-14.3) 07/09/18 17:00 Hct 39.0 % (30.3-42.9) 07/09/18 17:00 MCV 78 fl (79-97) L 07/09/18 17:00 MCH 25 pg (28-32) L 07/09/18 17:00 MCHC 32 % (30-34) 07/09/18 17:00 RDW 14.4 % (13.2-15.2) 07/09/18 17:00 Plt Count 367 K/mm3 (140-440) 07/09/18 17:00 Add Manual Diff Complete 07/09/18 17:00 Total Counted 100 07/09/18 17:00 Seg Neuts % (Manual) 76.0 % (40.0-70.0) H 07/09/18 17:00 Band Neutrophils % 1.0 % 07/09/18 17:00 Lymphocytes % (Manual) 18.0 % (13.4-35.0) 07/09/18 17:00 Reactive Lymphs % (Man) 0 % 07/09/18 17:00 Monocytes % (Manual) 2.0 % (0.0-7.3) 07/09/18 17:00 Eosinophils % (Manual) 3.0 % (0.0-4.3) 07/09/18 17:00 Basophils % (Manual) 0 % (0.0-1.8) 07/09/18 17:00 Metamyelocytes % 0 % 07/09/18 17:00 Myelocytes % 0 % 07/09/18 17:00 Promyelocytes % 0 % 07/09/18 17:00 Blast Cells % 0 % 07/09/18 17:00 Nucleated RBC % Not Reportable 07/09/18 17:00 Seg Neutrophils # Man 7.8 K/mm3 (1.8-7.7) H 07/09/18 17:00 Band Neutrophils # 0.1 K/mm3 07/09/18 17:00 Lymphocytes # (Manual) 1.8 K/mm3 (1.2-5.4) 07/09/18 17:00 Abs React Lymphs (Man) 0.0 K/mm3 07/09/18 17:00 Monocytes # (Manual) 0.2 K/mm3 (0.0-0.8) 07/09/18 17:00 Eosinophils # (Manual) 0.3 K/mm3 (0.0-0.4) 07/09/18 17:00 Basophils # (Manual) 0.0 K/mm3 (0.0-0.1) 07/09/18 17:00 Metamyelocytes # 0.0 K/mm3 07/09/18 17:00 Myelocytes # 0.0 K/mm3 07/09/18 17:00 Promyelocytes # 0.0 K/mm3 07/09/18 17:00 Blast Cells # 0.0 K/mm3 07/09/18 17:00 WBC Morphology Not Reportable 07/09/18 17:00 Hypersegmented Neuts Not Reportable 07/09/18 17:00 Hyposegmented Neuts Not Reportable 07/09/18 17:00 Hypogranular Neuts Not Reportable 07/09/18 17:00 Smudge Cells Not Reportable 07/09/18 17:00 Toxic Granulation Not Reportable 07/09/18 17:00 Toxic Vacuolation Not Reportable 07/09/18 17:00 Dohle Bodies Not Reportable 07/09/18 17:00 Pelger-Huet Anomaly Not Reportable 07/09/18 17:00 Venus Rods Not Reportable 07/09/18 17:00 Platelet Estimate Consistent w auto 07/09/18 17:00 Clumped Platelets Not Reportable 07/09/18 17:00 Plt Clumps, EDTA Not Reportable 07/09/18 17:00 Large Platelets Not Reportable 07/09/18 17:00 Giant Platelets Not Reportable 07/09/18 17:00 Platelet Satelliting Not Reportable 07/09/18 17:00 Plt Morphology Comment Not Reportable 07/09/18 17:00 RBC Morphology Not Reportable 07/09/18 17:00 Dimorphic RBCs Not Reportable 07/09/18 17:00 Polychromasia Not Reportable 07/09/18 17:00 Hypochromasia Not Reportable 07/09/18 17:00 Poikilocytosis Not Reportable 07/09/18 17:00 Anisocytosis 1+ 07/09/18 17:00 Microcytosis Not Reportable 07/09/18 17:00 Macrocytosis Not Reportable 07/09/18 17:00 Spherocytes Not Reportable 07/09/18 17:00 Pappenheimer Bodies Not Reportable 07/09/18 17:00 Sickle Cells Not Reportable 07/09/18 17:00 Target Cells Not Reportable 07/09/18 17:00 Tear Drop Cells Not Reportable 07/09/18 17:00 Ovalocytes Not Reportable 07/09/18 17:00 Helmet Cells Not Reportable 07/09/18 17:00 [place] Bodies Not Reportable 07/09/18 17:00 [place] Rings Not Reportable 07/09/18 17:00 [place] Cells Not Reportable 07/09/18 17:00 Bite Cells Not Reportable 07/09/18 17:00 Crenated Cell Not Reportable 07/09/18 17:00 Elliptocytes Not Reportable 07/09/18 17:00 Acanthocytes (Spur) Not Reportable 07/09/18 17:00 Rouleaux Not Reportable 07/09/18 17:00 Hemoglobin C Crystals Not Reportable 07/09/18 17:00 Schistocytes Not Reportable 07/09/18 17:00 Malaria parasites Not Reportable 07/09/18 17:00 Jaron Bodies Not Reportable 07/09/18 17:00 Hem Pathologist Commnt No 07/09/18 17:00 Sodium 139 mmol/L (137-145) 07/09/18 17:00 Potassium 3.7 mmol/L (3.6-5.0) 07/09/18 17:00 Chloride 102.0 mmol/L (98-107) 07/09/18 17:00 Carbon Dioxide 22 mmol/L (22-30) 07/09/18 17:00 Anion Gap 19 mmol/L 07/09/18 17:00 BUN 10 mg/dL (7-17) 07/09/18 17:00 Creatinine 0.6 mg/dL (0.7-1.2) L 07/09/18 17:00 Estimated GFR > 60 ml/min 07/09/18 17:00 BUN/Creatinine Ratio 17 % 07/09/18 17:00 Glucose 118 mg/dL (65-100) H 07/09/18 17:00 Hemoglobin A1c 4.7 % (4-6) 07/09/18 22:04 Lactic Acid 1.40 mmol/L (0.7-2.0) 07/09/18 19:21 Calcium 9.2 mg/dL (8.4-10.2) 07/09/18 17:00 Total Bilirubin 0.30 mg/dL (0.1-1.2) 07/09/18 17:00 AST 15 units/L (5-40) 07/09/18 17:00 ALT 10 units/L (7-56) 07/09/18 17:00 Alkaline Phosphatase 58 units/L (35-129) 07/09/18 17:00 Total Protein 7.8 g/dL (6.3-8.2) 07/09/18 17:00 Albumin 4.3 g/dL (3.9-5) 07/09/18 17:00 Albumin/Globulin Ratio 1.2 % 07/09/18 17:00 HCG, Quant < 2 mIU/mL (0-4) 07/09/18 17:16 Blood Type AB POSITIVE 07/09/18 17:16 Antibody Screen Negative 07/09/18 17:16
[2018-07-10] MEDS: PEPCID IV SCH ×2 (09:42→22:29)
[2018-07-10] MEDS: LEVAQUIN 750MG/150ML 750 MG/150 ML BAG IV SCH (09:43)
[2018-07-10] MEDS: D5NS 1,000 ML IV SCH (09:43)
[2018-07-10] MEDS ORDERED: ZOFRAN IV PRN (09:55)
[2018-07-10 11:31] LABS: Basophils % (Auto) 0.4 % (0.0-1.8); Eosinophils # (Auto) 0.1 K/mm3 (0.0-0.4); Eosinophils % (Auto) 1.1 % (0.0-4.3); Hematocrit 31.1 % (30.3-42.9); Hemoglobin 9.9 gm/dl (10.1-14.3); Lymphocytes # (Auto) 3.4 K/mm3 (1.2-5.4); Lymphocytes % (Auto) 30.9 % (13.4-35.0); Mean Corpuscular HGB Conc 32 % (30-34); Mean Corpuscular Volume 76 fl (79-97); Monocytes % (Auto) 8.6 % (0.0-7.3); Platelet Count 336 K/mm3 (140-440); Red Blood Count 4.09 M/mm3 (3.65-5.03); Red Cell Distribution Width 14.3 % (13.2-15.2)
[2018-07-10 11:33] LABS: Mean Corpuscular Hemoglobin 24 pg (28-32)
[2018-07-10 11:52] LABS: Alanine Aminotransferase 11 units/L (7-56); Albumin 3.5 g/dL (3.9-5); BUN/Creatinine Ratio 12; Blood Urea Nitrogen 7 mg/dL (7-17); Calcium 8.2 mg/dL (8.4-10.2); Hemolysis Index 13
--- NOTE | 2018-07-10 13:08 | Consultation ---
History of Present Illness Consult date: 07/10/18 Reason for consult: abdominal pain Chief complaint: abdominal pain - History of present illness History of present illness: 37 yo F with hx of uterine fibroids and ovarian cyst presents to ER with c/o severe pelvic pain for the last 2 days. The patient states that the pain started with the onset of her menstrual cycle and is localized to the pelvis. Nothing helps to alleviate the pain. She states this has been an ongoing problem with the onset of every cycle for the past several months. She was followed by INFORMATION SECURITY OFFICER at [facility] and recently underwent surgery due to persistent cyclical pain. On 05/20/18 she underwent Diagnostic laparoscopy, TOBIAS, cystectomy with left salpingoophorectomy. During the surgery, the bowel was ran by general surgery and no bowel injury/pathology was seen. The patient states she did well after the surgery however the same preoperative pain started again with the onset of her menstrual cycle. She admits to increased bleeding with menstruation and pain with sexual intercourse around the time of her menstrual cycle. She has nonbloody/nonbilious emesis when the pain is severe. She denies pain with defecation or urination. No f/c, cp, sob. She is not nauseated at this time. Past History Past Medical History: other (fibroids, ovarian cyst) Past Surgical History: Other (diagnostic laparoscopy, lysis of adhesions, cystectomy with left salpingoophorectomy) Social history: no significant social history Family history: other (multiple myeloma - grandfather) Medications and Allergies Allergies Allergy/AdvReac Type Severity Reaction Status Date / Time Penicillins Allergy Anaphylaxis Verified 03/03/18 08:41 Home Medications Medication Instructions Recorded Confirmed Last Taken Type Ibuprofen [Motrin 800 MG tab] 800 mg PO Q8HR PRN #20 tablet 03/03/18 Unknown Rx Active Meds: Active Medications Acetaminophen (Tylenol) 650 mg PO Q4H PRN PRN Reason: Pain MILD(1-3)/Fever >100.5/RIBEIRO Famotidine (Pepcid) 20 mg IV BID SUYAPA Last Admin: 07/10/18 09:42 Dose: 20 mg Hydromorphone HCl (Dilaudid) 0.5 mg IV Q3H PRN PRN Reason: Pain , Severe (7-10) Dextrose/Sodium Chloride (D5ns) 1,000 mls @ 100 mls/hr IV DIRECT SUYAPA Last Admin: 07/10/18 09:43 Dose: 100 mls/hr Levofloxacin/Dextrose (Levaquin 750mg/150ml) 750 mg in 150 mls @ 100 mls/hr IV Q24HR SUYAPA; Protocol Last Admin: 07/10/18 09:43 Dose: 100 mls/hr Metronidazole (Flagyl 500 Mg/100 Ml) 500 mg in 100 mls @ 100 mls/hr IV Q8HR SUYAPA ; Protocol Last Admin: 07/10/18 06:00 Dose: 100 mls/hr Morphine Sulfate (Morphine) 4 mg IV Q4H PRN PRN Reason: Pain, Moderate (4-6) Last Admin: 07/10/18 09:38 Dose: 4 mg Ondansetron HCl (Zofran) 4 mg IV Q4H PRN PRN Reason: Nausea And Vomiting Last Admin: 07/10/18 10:33 Dose: 4 mg Sodium Chloride (Sodium Chloride Flush Syringe 10 Ml) 10 ml IV BID SUYAPA Sodium Chloride (Sodium Chloride Flush Syringe 10 Ml) 10 ml IV PRN PRN PRN Reason: LINE FLUSH Review of Systems All systems: negative (10 PT ROS performed and negative except for that listed in HPI) Exam Vital Signs Temp Pulse BP Pulse Ox 98.6 F 69 120/93 100 07/09/18 16:21 07/09/18 16:21 07/09/18 16:21 07/09/18 16:21 Narrative exam: Gen: AAOx3. mod distress due to pelvic pain CV: S1, S2+ Resp: CTAB, no w/r/r Abd: soft, ND, moderate TTP in suprapubic region. no r/r/g Ext: no c/c/e Results - Labs 07/10/18 10:39 07/10/18 10:39 Abnormal lab results 07/09/18 07/09/18 07/10/18 Range/Units 17:00 17:00 10:39 WBC 11.1 H (4.5-11.0) K/mm3 Hgb 9.9 L (10.1-14.3) gm/dl MCV 78 L 76 L (79-97) fl MCH 25 L 24 L (28-32) pg [place] % (Auto) 8.6 H (0.0-7.3) % [place] # 1.0 H (0.0-0.8) K/mm3 Seg Neuts % (Manual) 76.0 H (40.0-70.0) % Seg Neutrophils # Man 7.8 H (1.8-7.7) K/mm3 Potassium (3.6-5.0) mmol/L Creatinine 0.6 L (0.7-1.2) mg/dL Glucose 118 H (65-100) mg/dL Calcium (8.4-10.2) mg/dL Total Protein (6.3-8.2) g/dL Albumin (3.9-5) g/dL 07/10/18 Range/Units 10:39 WBC (4.5-11.0) K/mm3 Hgb (10.1-14.3) gm/dl MCV (79-97) fl MCH (28-32) pg [place] % (Auto) (0.0-7.3) % [place] # (0.0-0.8) K/mm3 Seg Neuts % (Manual) (40.0-70.0) % Seg Neutrophils # Man (1.8-7.7) K/mm3 Potassium 3.3 L (3.6-5.0) mmol/L Creatinine 0.6 L (0.7-1.2) mg/dL Glucose (65-100) mg/dL Calcium 8.2 L (8.4-10.2) mg/dL Total Protein 6.0 L D (6.3-8.2) g/dL Albumin 3.5 L (3.9-5) g/dL Diabetes panel 07/09/18 07/09/18 07/10/18 Range/Units 17:00 22:04 10:39 Sodium 139 139 (137-145) mmol/L Potassium 3.7 3.3 L (3.6-5.0) mmol/L Chloride 102.0 105.5 (98-107) mmol/L Carbon Dioxide 22 22 (22-30) mmol/L BUN 10 7 (7-17) mg/dL Creatinine 0.6 L 0.6 L (0.7-1.2) mg/dL Glucose 118 H 99 (65-100) mg/dL Hemoglobin A1c 4.7 (4-6) % Calcium 9.2 8.2 L (8.4-10.2) mg/dL AST 15 14 (5-40) units/L ALT 10 11 (7-56) units/L Alkaline Phosphatase 58 46 (35-129) units/L Total Protein 7.8 6.0 L D (6.3-8.2) g/dL Albumin 4.3 3.5 L (3.9-5) g/dL Calcium panel 07/09/18 07/10/18 Range/Units 17:00 10:39 Calcium 9.2 8.2 L (8.4-10.2) mg/dL Albumin 4.3 3.5 L (3.9-5) g/dL Pituitary panel 07/09/18 07/10/18 Range/Units 17:00 10:39 Sodium 139 139 (137-145) mmol/L Potassium 3.7 3.3 L (3.6-5.0) mmol/L Chloride 102.0 105.5 (98-107) mmol/L Carbon Dioxide 22 22 (22-30) mmol/L BUN 10 7 (7-17) mg/dL Creatinine 0.6 L 0.6 L (0.7-1.2) mg/dL Glucose 118 H 99 (65-100) mg/dL Calcium 9.2 8.2 L (8.4-10.2) mg/dL Adrenal panel 07/09/18 07/10/18 Range/Units 17:00 10:39 Sodium 139 139 (137-145) mmol/L Potassium 3.7 3.3 L (3.6-5.0) mmol/L Chloride 102.0 105.5 (98-107) mmol/L Carbon Dioxide 22 22 (22-30) mmol/L BUN 10 7 (7-17) mg/dL Creatinine 0.6 L 0.6 L (0.7-1.2) mg/dL Glucose 118 H 99 (65-100) mg/dL Calcium 9.2 8.2 L (8.4-10.2) mg/dL Total Bilirubin 0.30 0.30 (0.1-1.2) mg/dL AST 15 14 (5-40) units/L ALT 10 11 (7-56) units/L Alkaline Phosphatase 58 46 (35-129) units/L Total Protein 7.8 6.0 L D (6.3-8.2) g/dL Albumin 4.3 3.5 L (3.9-5) g/dL - Imaging CT scan - abdomen: report reviewed, image reviewed CT scan - pelvis: report reviewed, image reviewed US - pelvic: report reviewed, image reviewed Assessment and Plan 37 yo F with cyclic pelvic pain during menstruation, pelvic fluid collection All outside documents reviewed and current images reviewed personally. Plan: 1. may start diet 2. IVF 3. on IV abx 4. prn pain control 5. pelvic pain likely gynecologic in origin based on patient's history. Small pelvic fluid collection is likely post operative fluid collection. Abscess less likely as patient is not having fevers and WBC within normal limits. If concern remains that this is a source of infection, drainage can be attempted by interventional radiology. 6. no general surgery intervention required at this time. will defer to INFORMATION SECURITY OFFICER Thank you for this consultation, please call with questions or concerns.
[2018-07-10] MEDS: DILAUDID IV PRN (13:13)
[2018-07-10 20:36] LABS: Bilirubin,Urine NEG (Negative); Blood,Urine LG (Negative); Color,Urine Straw (Yellow); Mucus,Urine FEW /HPF; Protein,Urine <15 mg/dL mg/dL (Negative); Urobilinogen,Urine < 2.0 mg/dL (<2.0)
--- NOTE | 2018-07-10 22:01 | Magnetic Resonance Report ---
FINAL REPORT EXAM: MR PELVIS WO/W CON HISTORY: Pelvic Mass TECHNIQUE: MRI was performed of the pelvis using the following pulse sequences: Axial: Fat-suppressed T2, T1, gadolinium-enhanced fat-suppressed T1 Coronal: Fat-suppressed T2, T1 gadolinium-enhanced fat-suppressed T1 Sagittal: Fat-suppressed T1, gadolinium-enhanced fat-suppressed T1 PRIORS: CT scan and ultrasounds from 07/09/2018. FINDINGS: There is a cystic lesion in the left perirectal space that morphologically appears to represent a cyst in the left ovary. There are other smaller surrounding cysts consistent with normal follicles. The cyst measures 4.7 x 2.9 x 3.0 cm and occupies the majority of the volume of the left ovary. The right ovary appears normal measuring 3.5 x 2.2 x 3.7 Cm. The uterus measures 10.0 x 6.4 x 6.8 cm. There are multiple uterine fibroids with the largest being in the right posterior myometrium measuring 3.2 cm in diameter. The 2nd largest is also in the low posterior myometrium and measures 1.8 cm. There is a small to moderate amount of free pelvic fluid, slightly increased from the comparison exam. There are no abnormally enlarged lymph nodes. The bones are normal in marrow signal. IMPRESSION: 1. The cystic lesion in the left perirectal space identified on CT is morphologically consistent with 4.7 cm cyst the left ovary, in an unusual location. Correlation with surgical history is recommended. 2. Multiple uterine fibroids
[2018-07-10] MEDS: SODIUM CHLORIDE FLUSH SYRINGE 10 ML IV SCH (23:01)
[2018-07-11] MEDS: D5NS 1,000 ML IV SCH (02:15)
[2018-07-11] MEDS: DILAUDID IV PRN (04:49)
[2018-07-11] MEDS: FLAGYL 500 MG/100 ML 500 MG/100 ML BAG IV SCH ×3 (06:37→21:24)
[2018-07-11] MEDS: PEPCID IV SCH ×2 (09:02→21:25)
[2018-07-11] MEDS: LEVAQUIN 750MG/150ML 750 MG/150 ML BAG IV SCH (09:02)
[2018-07-11] MEDS: SODIUM CHLORIDE FLUSH SYRINGE 10 ML IV SCH ×2 (10:00→21:25)
--- NOTE | 2018-07-11 17:35 | Progress Note ---
Assessment and Plan Assessment and plan: Patient is a 37 y/o female comes in for sudden onset of abdominal pain for 1 day. The pain is severe and 10/10, Sharp in nature and non radiating, it is associated with nausea Nausea present. Patient had L side Ovarian Cyst measuring 10 [id number] removal in May 2018 with also uterine fibroid removal. Patient No Exacerbating or relieving factors. imaging studies in the ED was possible abscess in the right clinical setting vs endometrial implant. 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 Tobacco use disorder * Counselling provided to quit. she verbalized understanding. Fatty liver * Dicussed with patient. * Outpatient follow up with GI and diet modification DVT/GI prophy PLAN DISCUSSED WITH PATIENT AND NURSING STAFF History Interval history: Patient seen and examined this am, much more relaxed today not as much pain ability yesterday. But also stated she just got pain medication. Denies any fever nausea vomiting or diarrhea. Hospitalist Physical - Physical exam Narrative exam: VITAL SIGNS: Reviewed. GENERAL: The patient appeared well nourished and normally developed. Vital signs as documented. HEAD: No signs of head trauma. EYES: Pupils are equal. Extraocular motions intact. EARS: Hearing grossly intact. MOUTH: Oropharynx is normal. NECK: No adenopathy, no JVD. CHEST: Chest with clear breath sounds bilaterally. No wheezes, rales, or rhonchi. CARDIAC: Regular rate and rhythm. S1 and S2, without murmurs, gallops, or rubs. VASCULAR: No Edema. Peripheral pulses normal and equal in all extremities. ABDOMEN: Soft, without detectable tenderness. No sign of distention. No rebound or guarding, and no masses palpated. Bowel Sounds normal. MUSCULOSKELETAL: Good range of motion of all major joints. Extremities without clubbing, cyanosis or edema. NEUROLOGIC EXAM: Alert and oriented x 3. No focal sensory or strength deficits. Speech normal. Follows commands. PSYCHIATRIC: Mood normal. SKIN: No rash or lesions. - Constitutional Vitals: Temp Pulse Resp BP Pulse Ox 97.9 F 62 18 110/59 99 07/11/18 08:54 07/11/18 08:54 07/11/18 08:54 07/11/18 08:54 07/11/18 08:54 General appearance: Present: mild distress, well-nourished Results - Labs CBC & Chem 7: 07/10/18 10:39 07/10/18 10:39 Labs: Laboratory Last Values WBC 11.1 K/mm3 (4.5-11.0) H 07/10/18 10:39 RBC 4.09 M/mm3 (3.65-5.03) 07/10/18 10:39 Hgb 9.9 gm/dl (10.1-14.3) L 07/10/18 10:39 Hct 31.1 % (30.3-42.9) D 07/10/18 10:39 MCV 76 fl (79-97) L 07/10/18 10:39 MCH 24 pg (28-32) L 07/10/18 10:39 MCHC 32 % (30-34) 07/10/18 10:39 RDW 14.3 % (13.2-15.2) 07/10/18 10:39 Plt Count 336 K/mm3 (140-440) 07/10/18 10:39 Lymph % (Auto) 30.9 % (13.4-35.0) 07/10/18 10:39 [place] % (Auto) 8.6 % (0.0-7.3) H 07/10/18 10:39 Eos % (Auto) 1.1 % (0.0-4.3) 07/10/18 10:39 Baso % (Auto) 0.4 % (0.0-1.8) 07/10/18 10:39 Lymph # 3.4 K/mm3 (1.2-5.4) 07/10/18 10:39 Potter # 1.0 K/mm3 (0.0-0.8) H 07/10/18 10:39 Eos # 0.1 K/mm3 (0.0-0.4) 07/10/18 10:39 Baso # 0.0 K/mm3 (0.0-0.1) 07/10/18 10:39 Add Manual Diff Complete 07/09/18 17:00 Total Counted 100 07/09/18 17:00 Seg Neutrophils % 59.0 % (40.0-70.0) 07/10/18 10:39 Seg Neuts % (Manual) 76.0 % (40.0-70.0) H 07/09/18 17:00 Band Neutrophils % 1.0 % 07/09/18 17:00 Lymphocytes % (Manual) 18.0 % (13.4-35.0) 07/09/18 17:00 Reactive Lymphs % (Man) 0 % 07/09/18 17:00 Monocytes % (Manual) 2.0 % (0.0-7.3) 07/09/18 17:00 Eosinophils % (Manual) 3.0 % (0.0-4.3) 07/09/18 17:00 Basophils % (Manual) 0 % (0.0-1.8) 07/09/18 17:00 Metamyelocytes % 0 % 07/09/18 17:00 Myelocytes % 0 % 07/09/18 17:00 Promyelocytes % 0 % 07/09/18 17:00 Blast Cells % 0 % 07/09/18 17:00 Nucleated RBC % Not Reportable 07/09/18 17:00 Seg Neutrophils # 6.5 K/mm3 (1.8-7.7) 07/10/18 10:39 Seg Neutrophils # Man 7.8 K/mm3 (1.8-7.7) H 07/09/18 17:00 Band Neutrophils # 0.1 K/mm3 07/09/18 17:00 Lymphocytes # (Manual) 1.8 K/mm3 (1.2-5.4) 07/09/18 17:00 Abs React Lymphs (Man) 0.0 K/mm3 07/09/18 17:00 Monocytes # (Manual) 0.2 K/mm3 (0.0-0.8) 07/09/18 17:00 Eosinophils # (Manual) 0.3 K/mm3 (0.0-0.4) 07/09/18 17:00 Basophils # (Manual) 0.0 K/mm3 (0.0-0.1) 07/09/18 17:00 Metamyelocytes # 0.0 K/mm3 07/09/18 17:00 Myelocytes # 0.0 K/mm3 07/09/18 17:00 Promyelocytes # 0.0 K/mm3 07/09/18 17:00 Blast Cells # 0.0 K/mm3 07/09/18 17:00 WBC Morphology Not Reportable 07/09/18 17:00 Hypersegmented Neuts Not Reportable 07/09/18 17:00 Hyposegmented Neuts Not Reportable 07/09/18 17:00 Hypogranular Neuts Not Reportable 07/09/18 17:00 Smudge Cells Not Reportable 07/09/18 17:00 Toxic Granulation Not Reportable 07/09/18 17:00 Toxic Vacuolation Not Reportable 07/09/18 17:00 Dohle Bodies Not Reportable 07/09/18 17:00 Pelger-Huet Anomaly Not Reportable 07/09/18 17:00 Venus Rods Not Reportable 07/09/18 17:00 Platelet Estimate Consistent w auto 07/09/18 17:00 Clumped Platelets Not Reportable 07/09/18 17:00 Plt Clumps, EDTA Not Reportable 07/09/18 17:00 Large Platelets Not Reportable 07/09/18 17:00 Giant Platelets Not Reportable 07/09/18 17:00 Platelet Satelliting Not Reportable 07/09/18 17:00 Plt Morphology Comment Not Reportable 07/09/18 17:00 RBC Morphology Not Reportable 07/09/18 17:00 Dimorphic RBCs Not Reportable 07/09/18 17:00 Polychromasia Not Reportable 07/09/18 17:00 Hypochromasia Not Reportable 07/09/18 17:00 Poikilocytosis Not Reportable 07/09/18 17:00 Anisocytosis 1+ 07/09/18 17:00 Microcytosis Not Reportable 07/09/18 17:00 Macrocytosis Not Reportable 07/09/18 17:00 Spherocytes Not Reportable 07/09/18 17:00 Pappenheimer Bodies Not Reportable 07/09/18 17:00 Sickle Cells Not Reportable 07/09/18 17:00 Target Cells Not Reportable 07/09/18 17:00 Tear Drop Cells Not Reportable 07/09/18 17:00 Ovalocytes Not Reportable 07/09/18 17:00 Helmet Cells Not Reportable 07/09/18 17:00 [place] Bodies Not Reportable 07/09/18 17:00 [place] Rings Not Reportable 07/09/18 17:00 Francine Cells Not Reportable 07/09/18 17:00 Bite Cells Not Reportable 07/09/18 17:00 Crenated Cell Not Reportable 07/09/18 17:00 Elliptocytes Not Reportable 07/09/18 17:00 Acanthocytes (Spur) Not Reportable 07/09/18 17:00 Rouleaux Not Reportable 07/09/18 17:00 Hemoglobin C Crystals Not Reportable 07/09/18 17:00 Schistocytes Not Reportable 07/09/18 17:00 Malaria parasites Not Reportable 07/09/18 17:00 Jaron Bodies Not Reportable 07/09/18 17:00 Hem Pathologist Commnt No 07/09/18 17:00 Sodium 139 mmol/L (137-145) 07/10/18 10:39 Potassium 3.3 mmol/L (3.6-5.0) L 07/10/18 10:39 Chloride 105.5 mmol/L (98-107) 07/10/18 10:39 Carbon Dioxide 22 mmol/L (22-30) 07/10/18 10:39 Anion Gap 15 mmol/L 07/10/18 10:39 BUN 7 mg/dL (7-17) 07/10/18 10:39 Creatinine 0.6 mg/dL (0.7-1.2) L 07/10/18 10:39 Estimated GFR > 60 ml/min 07/10/18 10:39 BUN/Creatinine Ratio 12 % 07/10/18 10:39 Glucose 99 mg/dL (65-100) 07/10/18 10:39 Hemoglobin A1c 4.7 % (4-6) 07/09/18 22:04 Lactic Acid 1.40 mmol/L (0.7-2.0) 07/09/18 19:21 Calcium 8.2 mg/dL (8.4-10.2) L 07/10/18 10:39 Total Bilirubin 0.30 mg/dL (0.1-1.2) 07/10/18 10:39 AST 14 units/L (5-40) 07/10/18 10:39 ALT 11 units/L (7-56) 07/10/18 10:39 Alkaline Phosphatase 46 units/L (35-129) 07/10/18 10:39 Total Protein 6.0 g/dL (6.3-8.2) L D 07/10/18 10:39 Albumin 3.5 g/dL (3.9-5) L 07/10/18 10:39 Albumin/Globulin Ratio 1.4 % 07/10/18 10:39 HCG, Quant < 2 mIU/mL (0-4) 07/09/18 17:16 Urine Color Straw (Yellow) 07/10/18 20:15 Urine Turbidity Clear (Clear) 07/10/18 20:15 Urine pH 6.0 (5.0-7.0) 07/10/18 20:15 Ur Specific [place] 1.003 (1.003-1.030) 07/10/18 20:15 Urine Protein <15 mg/dl mg/dL (Negative) 07/10/18 20:15 Urine Glucose (UA) Neg mg/dL (Negative) 07/10/18 20:15 Urine Ketones Neg mg/dL (Negative) 07/10/18 20:15 Urine Blood Lg (Negative) 07/10/18 20:15 Urine Nitrite Neg (Negative) 07/10/18 20:15 Urine Bilirubin Neg (Negative) 07/10/18 20:15 Urine Urobilinogen < 2.0 mg/dL (<2.0) 07/10/18 20:15 Ur Leukocyte Esterase Tr (Negative) 07/10/18 20:15 Urine WBC (Auto) 3.0 /HPF (0.0-6.0) 07/10/18 20:15 Urine RBC (Auto) 103.0 /HPF (0.0-6.0) 07/10/18 20:15 U Epithel Cells (Auto) 2.0 /HPF (0-13.0) 07/10/18 20:15 Urine Mucus Few /HPF 07/10/18 20:15 Blood Type AB POSITIVE 07/09/18 17:16 Antibody Screen Negative 07/09/18 17:16
[2018-07-12] MEDS: FLAGYL 500 MG/100 ML 500 MG/100 ML BAG IV SCH ×2 (06:00→14:04)
--- NOTE | 2018-07-12 09:47 | Progress Note ---
Assessment and Plan Assessment and plan: Patient is a 37 y/o female comes in for sudden onset of abdominal pain for 1 day. The pain is severe and 10/10, Sharp in nature and non radiating, it is associated with nausea Nausea present. Patient had L side Ovarian Cyst measuring 10 [id number] removal in May 2018 with also uterine fibroid removal. Patient No Exacerbating or relieving factors. imaging studies in the ED was possible abscess in the right clinical setting vs endometrial implant. Severe ABDOMINAL PAIN/Peritoneal irration possible peritonitis * Continue empiric antibiotics, Patient with no fever or any marker for sepsis * No fever. * Doubt abscess and no clear abscess on MRI * Ob Consulted * Pain control and antiemetic Dysmenorrhea * Multiple fibroid and an unsually placed ovarian cyst on MRI. Defer to OBGYN for management Tobacco use disorder * Counselling provided to quit. She verbalized understanding. Fatty liver * Discussed with patient. * Outpatient follow up with GI and diet modification DVT/GI prophy PLAN DISCUSSED WITH PATIENT AND NURSING STAFF History Interval history: Patient seen and examined this am, she reports no further abdominal pain. She states that this is consistent with her menstrual cycle pain. Hospitalist Physical - Physical exam Narrative exam: VITAL SIGNS: Reviewed. GENERAL: The patient appeared well nourished and normally developed. Vital signs as documented. HEAD: No signs of head trauma. EYES: Pupils are equal. Extraocular motions intact. EARS: Hearing grossly intact. MOUTH: Oropharynx is normal. NECK: No adenopathy, no JVD. CHEST: Chest with clear breath sounds bilaterally. No wheezes, rales, or rhonchi. CARDIAC: Regular rate and rhythm. S1 and S2, without murmurs, gallops, or rubs. VASCULAR: No Edema. Peripheral pulses normal and equal in all extremities. ABDOMEN: Soft, without detectable tenderness. No sign of distention. No rebound or guarding, and no masses palpated. Bowel Sounds normal. MUSCULOSKELETAL: Good range of motion of all major joints. Extremities without clubbing, cyanosis or edema. NEUROLOGIC EXAM: Alert and oriented x 3. No focal sensory or strength deficits. Speech normal. Follows commands. PSYCHIATRIC: Mood normal. SKIN: No rash or lesions. - Constitutional Vitals: Temp Pulse Resp BP Pulse Ox 98.7 F 64 15 116/68 100 07/12/18 07:38 07/12/18 07:40 07/12/18 07:38 07/12/18 07:38 07/12/18 07:40 General appearance: Present: mild distress, well-nourished Results - Labs CBC & Chem 7: 07/12/18 12:20 07/10/18 10:39 Labs: Laboratory Last Values WBC 11.1 K/mm3 (4.5-11.0) H 07/10/18 10:39 RBC 4.09 M/mm3 (3.65-5.03) 07/10/18 10:39 Hgb 9.9 gm/dl (10.1-14.3) L 07/10/18 10:39 Hct 31.1 % (30.3-42.9) D 07/10/18 10:39 MCV 76 fl (79-97) L 07/10/18 10:39 MCH 24 pg (28-32) L 07/10/18 10:39 MCHC 32 % (30-34) 07/10/18 10:39 RDW 14.3 % (13.2-15.2) 07/10/18 10:39 Plt Count 336 K/mm3 (140-440) 07/10/18 10:39 Lymph % (Auto) 30.9 % (13.4-35.0) 07/10/18 10:39 [place] % (Auto) 8.6 % (0.0-7.3) H 07/10/18 10:39 Eos % (Auto) 1.1 % (0.0-4.3) 07/10/18 10:39 Baso % (Auto) 0.4 % (0.0-1.8) 07/10/18 10:39 Lymph # 3.4 K/mm3 (1.2-5.4) 07/10/18 10:39 [place] # 1.0 K/mm3 (0.0-0.8) H 07/10/18 10:39 Eos # 0.1 K/mm3 (0.0-0.4) 07/10/18 10:39 Baso # 0.0 K/mm3 (0.0-0.1) 07/10/18 10:39 Add Manual Diff Complete 07/09/18 17:00 Total Counted 100 07/09/18 17:00 Seg Neutrophils % 59.0 % (40.0-70.0) 07/10/18 10:39 Seg Neuts % (Manual) 76.0 % (40.0-70.0) H 07/09/18 17:00 Band Neutrophils % 1.0 % 07/09/18 17:00 Lymphocytes % (Manual) 18.0 % (13.4-35.0) 07/09/18 17:00 Reactive Lymphs % (Man) 0 % 07/09/18 17:00 Monocytes % (Manual) 2.0 % (0.0-7.3) 07/09/18 17:00 Eosinophils % (Manual) 3.0 % (0.0-4.3) 07/09/18 17:00 Basophils % (Manual) 0 % (0.0-1.8) 07/09/18 17:00 Metamyelocytes % 0 % 07/09/18 17:00 Myelocytes % 0 % 07/09/18 17:00 Promyelocytes % 0 % 07/09/18 17:00 Blast Cells % 0 % 07/09/18 17:00 Nucleated RBC % Not Reportable 07/09/18 17:00 Seg Neutrophils # 6.5 K/mm3 (1.8-7.7) 07/10/18 10:39 Seg Neutrophils # Man 7.8 K/mm3 (1.8-7.7) H 07/09/18 17:00 Band Neutrophils # 0.1 K/mm3 07/09/18 17:00 Lymphocytes # (Manual) 1.8 K/mm3 (1.2-5.4) 07/09/18 17:00 Abs React Lymphs (Man) 0.0 K/mm3 07/09/18 17:00 Monocytes # (Manual) 0.2 K/mm3 (0.0-0.8) 07/09/18 17:00 Eosinophils # (Manual) 0.3 K/mm3 (0.0-0.4) 07/09/18 17:00 Basophils # (Manual) 0.0 K/mm3 (0.0-0.1) 07/09/18 17:00 Metamyelocytes # 0.0 K/mm3 07/09/18 17:00 Myelocytes # 0.0 K/mm3 07/09/18 17:00 Promyelocytes # 0.0 K/mm3 07/09/18 17:00 Blast Cells # 0.0 K/mm3 07/09/18 17:00 WBC Morphology Not Reportable 07/09/18 17:00 Hypersegmented Neuts Not Reportable 07/09/18 17:00 Hyposegmented Neuts Not Reportable 07/09/18 17:00 Hypogranular Neuts Not Reportable 07/09/18 17:00 Smudge Cells Not Reportable 07/09/18 17:00 Toxic Granulation Not Reportable 07/09/18 17:00 Toxic Vacuolation Not Reportable 07/09/18 17:00 Dohle Bodies Not Reportable 07/09/18 17:00 Pelger-Huet Anomaly Not Reportable 07/09/18 17:00 Venus Rods Not Reportable 07/09/18 17:00 Platelet Estimate Consistent w auto 07/09/18 17:00 Clumped Platelets Not Reportable 07/09/18 17:00 Plt Clumps, EDTA Not Reportable 07/09/18 17:00 Large Platelets Not Reportable 07/09/18 17:00 Giant Platelets Not Reportable 07/09/18 17:00 Platelet Satelliting Not Reportable 07/09/18 17:00 Plt Morphology Comment Not Reportable 07/09/18 17:00 RBC Morphology Not Reportable 07/09/18 17:00 Dimorphic RBCs Not Reportable 07/09/18 17:00 Polychromasia Not Reportable 07/09/18 17:00 Hypochromasia Not Reportable 07/09/18 17:00 Poikilocytosis Not Reportable 07/09/18 17:00 Anisocytosis 1+ 07/09/18 17:00 Microcytosis Not Reportable 07/09/18 17:00 Macrocytosis Not Reportable 07/09/18 17:00 Spherocytes Not Reportable 07/09/18 17:00 Pappenheimer Bodies Not Reportable 07/09/18 17:00 Sickle Cells Not Reportable 07/09/18 17:00 Target Cells Not Reportable 07/09/18 17:00 Tear Drop Cells Not Reportable 07/09/18 17:00 Ovalocytes Not Reportable 07/09/18 17:00 Helmet Cells Not Reportable 07/09/18 17:00 Echeverria-Morrill Bodies Not Reportable 07/09/18 17:00 [place] Rings Not Reportable 07/09/18 17:00 Francine Cells Not Reportable 07/09/18 17:00 Bite Cells Not Reportable 07/09/18 17:00 Crenated Cell Not Reportable 07/09/18 17:00 Elliptocytes Not Reportable 07/09/18 17:00 Acanthocytes (Spur) Not Reportable 07/09/18 17:00 Rouleaux Not Reportable 07/09/18 17:00 Hemoglobin C Crystals Not Reportable 07/09/18 17:00 Schistocytes Not Reportable 07/09/18 17:00 Malaria parasites Not Reportable 07/09/18 17:00 Jaron Bodies Not Reportable 07/09/18 17:00 Hem Pathologist Commnt No 07/09/18 17:00 Sodium 139 mmol/L (137-145) 07/10/18 10:39 Potassium 3.3 mmol/L (3.6-5.0) L 07/10/18 10:39 Chloride 105.5 mmol/L (98-107) 07/10/18 10:39 Carbon Dioxide 22 mmol/L (22-30) 07/10/18 10:39 Anion Gap 15 mmol/L 07/10/18 10:39 BUN 7 mg/dL (7-17) 07/10/18 10:39 Creatinine 0.6 mg/dL (0.7-1.2) L 07/10/18 10:39 Estimated GFR > 60 ml/min 07/10/18 10:39 BUN/Creatinine Ratio 12 % 07/10/18 10:39 Glucose 99 mg/dL (65-100) 07/10/18 10:39 Hemoglobin A1c 4.7 % (4-6) 07/09/18 22:04 Lactic Acid 1.40 mmol/L (0.7-2.0) 07/09/18 19:21 Calcium 8.2 mg/dL (8.4-10.2) L 07/10/18 10:39 Total Bilirubin 0.30 mg/dL (0.1-1.2) 07/10/18 10:39 AST 14 units/L (5-40) 07/10/18 10:39 ALT 11 units/L (7-56) 07/10/18 10:39 Alkaline Phosphatase 46 units/L (35-129) 07/10/18 10:39 Total Protein 6.0 g/dL (6.3-8.2) L D 07/10/18 10:39 Albumin 3.5 g/dL (3.9-5) L 07/10/18 10:39 Albumin/Globulin Ratio 1.4 % 07/10/18 10:39 HCG, Quant < 2 mIU/mL (0-4) 07/09/18 17:16 Urine Color Straw (Yellow) 07/10/18 20:15 Urine Turbidity Clear (Clear) 07/10/18 20:15 Urine pH 6.0 (5.0-7.0) 07/10/18 20:15 Ur Specific [place] 1.003 (1.003-1.030) 07/10/18 20:15 Urine Protein <15 mg/dl mg/dL (Negative) 07/10/18 20:15 Urine Glucose (UA) Neg mg/dL (Negative) 07/10/18 20:15 Urine Ketones Neg mg/dL (Negative) 07/10/18 20:15 Urine Blood Lg (Negative) 07/10/18 20:15 Urine Nitrite Neg (Negative) 07/10/18 20:15 Urine Bilirubin Neg (Negative) 07/10/18 20:15 Urine Urobilinogen < 2.0 mg/dL (<2.0) 07/10/18 20:15 Ur Leukocyte Esterase Tr (Negative) 07/10/18 20:15 Urine WBC (Auto) 3.0 /HPF (0.0-6.0) 07/10/18 20:15 Urine RBC (Auto) 103.0 /HPF (0.0-6.0) 07/10/18 20:15 U Epithel Cells (Auto) 2.0 /HPF (0-13.0) 07/10/18 20:15 Urine Mucus Few /HPF 07/10/18 20:15 Blood Type AB POSITIVE 07/09/18 17:16 Antibody Screen Negative 07/09/18 17:16
[2018-07-12] MEDS: LEVAQUIN 750MG/150ML 750 MG/150 ML BAG IV SCH (10:00)
[2018-07-12] MEDS: SODIUM CHLORIDE FLUSH SYRINGE 10 ML IV SCH (10:30)
[2018-07-12] MEDS: PEPCID IV SCH (10:30)
[2018-07-12 12:30] LABS: Basophils % (Auto) 0.5 % (0.0-1.8); Eosinophils # (Auto) 0.1 K/mm3 (0.0-0.4); Eosinophils % (Auto) 1.9 % (0.0-4.3); Hematocrit 32.4 % (30.3-42.9); Hemoglobin 10.4 gm/dl (10.1-14.3); Lymphocytes # (Auto) 2.5 K/mm3 (1.2-5.4); Lymphocytes % (Auto) 33.8 % (13.4-35.0); Mean Corpuscular HGB Conc 32 % (30-34); Mean Corpuscular Volume 76 fl (79-97); Monocytes # (Auto) 0.9 K/mm3 (0.0-0.8); Monocytes % (Auto) 11.8 % (0.0-7.3); Platelet Count 308 K/mm3 (140-440); Red Blood Count 4.29 M/mm3 (3.65-5.03); Red Cell Distribution Width 14.1 % (13.2-15.2)
[2018-07-12 12:31] LABS: Mean Corpuscular Hemoglobin 24 pg (28-32)
--- NOTE | 2018-07-12 14:41 | Discharge Summary ---
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 The pain is severe and 10/10, Sharp in nature and non radiating, it is associated with nausea Nausea present. Patient had L side Ovarian Cyst measuring 10 [id number] removal in May 2018 with also uterine fibroid removal. Patient No Exacerbating or relieving factors. imaging studies in the ED was possible abscess in the right clinical setting vs endometrial implant. Patient on admission was started on treatment for possible peritonitis with an abscess although imaging studies did not confirm this. She remained afebrile with no elevated leukocytosis. She did describe this pain as likely dysmenorrhea which was the reason she needed the initial fibroid surgery. 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 By the second of the patient's pain was improved and she was beginning to tolerate by mouth and today she is completely pain-free. She tells me that this is likely secondary to her menstrual cycle as some menstrual cycle started a day prior to presentation. Assessment muscle was provided to her tobacco use and also the findings of fatty liver. The fibroids also was discussed with the patient. Discharge diagnosis Severe ABDOMINAL PAIN secondary to peritoneal irritation likely from dysmenorrhea Multiple fibroids Ovarian cyst Dysmenorrhea Tobacco use disorder Fatty liver Disposition: TO HOME OR SELFCARE Time spent for discharge: 35 mins Core Measure Documentation - Palliative Care Palliative Care/ Comfort Measures: Not Applicable - Core Measures Any of the following diagnoses?: none - VTE Discharge Requirements Deep Vein Thrombosis/Pulmonary Embolism Present on Admission: No Exam - Physical Exam Narrative exam: VITAL SIGNS: Reviewed. GENERAL: The patient appeared well nourished and normally developed. Vital signs as documented. HEAD: No signs of head trauma. EYES: Pupils are equal. Extraocular motions intact. EARS: Hearing grossly intact. MOUTH: Oropharynx is normal. NECK: No adenopathy, no JVD. CHEST: Chest with clear breath sounds bilaterally. No wheezes, rales, or rhonchi. CARDIAC: Regular rate and rhythm. S1 and S2, without murmurs, gallops, or rubs. VASCULAR: No Edema. Peripheral pulses normal and equal in all extremities. ABDOMEN: Soft, without detectable tenderness. No sign of distention. No rebound or guarding, and no masses palpated. Bowel Sounds normal. MUSCULOSKELETAL: Good range of motion of all major joints. Extremities without clubbing, cyanosis or edema. NEUROLOGIC EXAM: Alert and oriented x 3. No focal sensory or strength deficits. Speech normal. Follows commands. PSYCHIATRIC: Mood normal. SKIN: No rash or lesions. - Constitutional Vitals: Temp Pulse Resp BP Pulse Ox 98.7 F 64 15 116/68 100 07/12/18 07:38 07/12/18 07:40 07/12/18 07:38 07/12/18 07:38 07/12/18 07:40 Plan Activity: advance as tolerated, fall precautions Diet: regular Special Instructions: record daily BP diary Follow up with: PRIMARY CAREMD [Primary Care Provider] - 3-5 Days ANTONINA SAUCEDO MD [Staff Physician] - 7 Days Prescriptions: levoFLOXacin [Levaquin TAB] 750 mg PO DAILY #5 tablet metroNIDAZOLE [Flagyl TAB] 500 mg PO TID #14 tablet
--- NOTE | 2018-07-12 16:33 | Event Note ---
Date: 07/12/18 Pt seen and is feeling much better - ready to go home. I discussed findings of CT Scan, Pelvic u/s and MRI - showing possible displaced left ovarian cyst and ovary in the ?perirectal space after a suspected LSO. She will follow up with her original surgeon upon discharge, then may follow up with me in my office. Thank you
[2018-07-12 16:39] VITALS: BP 135/71
[2018-07-12] MEDS ORDERED: K-DUR PO ONE (18:51)
[2018-07-13] MEDS ORDERED: FLAGYL PO SCH (08:00)
[2018-07-13] MEDS ORDERED: LEVAQUIN PO SCH (10:00)
[2018-07-13] MEDS ORDERED: PEPCID PO SCH (10:00)
== END 2018-07-12 19:30 | disposition home or self-care (01) | DRG 760 ==
LOC: ED 16:08 → 3B-SURG 19:52
PROVIDERS: ADMIT Internal Medicine; ATTEND Internal Medicine
DX: N94.6 Dysmenorrhea, unspecified (principal); K65.9 Peritonitis, unspecified; K76.0 Fatty (change of) liver, not elsewhere classified; D21.9 Benign neoplasm of connective and other soft tissue, unspecified; N83.209 Unspecified ovarian cyst, unspecified side; F17.200 Nicotine dependence, unspecified, uncomplicated; N73.9 Female pelvic inflammatory disease, unspecified; Z71.6 Tobacco abuse counseling; Z90.721 Acquired absence of ovaries, unilateral; Z88.0 Allergy status to penicillin; Z79.899 Other long term (current) drug therapy
CPT/HCPCS: 36415; 72197; 74177; 76830; 80053; 81001; 82140; 83036; 84702; 85007; 85025; 86850; 86900; 86901; 87040; 87086; 93975; A9577; J1170; J1956; J2270; J2405; J3010; J7030; J7042; Q9967

== ENCOUNTER 2018-12-04 14:39 | Emergency (ER) | payer BC ==
[2018-12-04] MEDS ORDERED: TORADOL IV ONE (15:08)
[2018-12-04] MEDS ORDERED: ZOFRAN IV ONE (15:08)
[2018-12-04] MEDS ORDERED: MORPHINE IV ONE (15:08)
[2018-12-04] MEDS ORDERED: NACL 0.9% 1000 ML 1,000 ML IV ONE (15:08)
--- NOTE | 2018-12-04 15:12 | Emergency Department Report ---
ED Female HPI - General Chief complaint: Abdominal Pain Stated complaint: ABD PAIN Time Seen by Provider: 12/04/18 15:06 Source: patient Mode of arrival: Wheelchair Limitations: No Limitations - History of Present Illness Initial comments: Patient is a 38-year-old Female who has a history of uterine fibroids who is complaining of heavy vaginal bleeding starting today. Patient also has has 10 out of 10 pain in the suprapubic region. Patient states "it feels as though my bottom is falling out". Patient states she is nauseous with no vomiting. She denies any diarrhea or vaginal discharge. Patient crying during the history and physical. - Related Data Previous Rx's Medication Instructions Recorded Last Taken Type levoFLOXacin [Levaquin TAB] 750 mg PO DAILY #5 tablet 07/12/18 Unknown Rx metroNIDAZOLE [Flagyl TAB] 500 mg PO TID #14 tablet 07/12/18 Unknown Rx Ketorolac [Toradol] 10 mg PO Q6H PRN #20 tablet 12/04/18 Unknown Rx Allergies Allergy/AdvReac Type Severity Reaction Status Date / Time Penicillins Allergy Anaphylaxis Verified 03/03/18 08:41 ED Review of Systems ROS: Stated complaint: ABD PAIN Other details as noted in HPI Comment: All other systems reviewed and negative ED Past Medical Hx - Past Medical History Previous Medical History?: Yes Hx Congestive Heart Failure: No Hx Diabetes: No Hx Asthma: No Hx COPD: No Hx HIV: No Additional medical history: Uterine Fibroids - Surgical History Past Surgical History?: Yes Additional Surgical History: Ovarian cyst and uterine fibroid removal surgery 2018 - Social History Smoking Status: Current Every Day Smoker Substance Use Type: None - Medications Home Medications: Home Medications Medication Instructions Recorded Confirmed Last Taken Type levoFLOXacin [Levaquin TAB] 750 mg PO DAILY #5 tablet 07/12/18 Unknown Rx metroNIDAZOLE [Flagyl TAB] 500 mg PO TID #14 tablet 07/12/18 Unknown Rx Ketorolac [Toradol] 10 mg PO Q6H PRN #20 tablet 12/04/18 Unknown Rx ED Physical Exam - General Limitations: No Limitations General appearance: alert, in distress - Head Head exam: Present: atraumatic, normocephalic - Eye Eye exam: Present: normal appearance - ENT ENT exam: Present: mucous membranes moist - Neck Neck exam: Present: normal inspection - Respiratory Respiratory exam: Present: normal lung sounds bilaterally. Absent: respiratory distress, wheezes, rales, rhonchi - Cardiovascular Cardiovascular Exam: Present: regular rate, normal rhythm. Absent: systolic murmur, diastolic murmur, rubs, gallop - GI/Abdominal GI/Abdominal exam: Present: soft, tenderness (suprapubic tenderness), normal bowel sounds. Absent: distended, guarding, rebound, rigid - Extremities Exam Extremities exam: Present: normal inspection - Back Exam Back exam: Present: normal inspection - Neurological Exam Neurological exam: Present: alert, oriented X3 - Psychiatric Psychiatric exam: Present: normal affect, normal mood - Skin Skin exam: Present: warm, dry, intact, normal color. Absent: rash ED Course Vital Signs 12/04/18 12/04/18 12/04/18 14:43 15:42 15:43 Temperature 97.8 F Pulse Rate 86 Respiratory 20 18 18 Rate Blood Pressure 147/90 Blood Pressure [Left] O2 Sat by Pulse 100 Oximetry 12/04/18 22:31 Temperature 98.5 F Pulse Rate 67 Respiratory 18 Rate Blood Pressure Blood Pressure 109/65 [Left] O2 Sat by Pulse 100 Oximetry ED Medical Decision Making - Lab Data Result diagrams: 12/04/18 15:50 12/04/18 15:50 - Radiology Data [facility] [address] [place] [address] Ultrasound Report Signed Patient: KAITLIN RENEE MR#: [id number] : 1980 Acct:[id number] Age/Sex: 38 / F ADM Date: 12/04/18 Loc: ED Attending Dr: Ordering Physician: BRE MENDOZA MD Date of Service: 12/04/18 Procedure(s): US transvaginal Accession Number(s): [id number] cc: BRE MENDOZA MD FINAL REPORT EXAM: US TRANSVAGINAL HISTORY: severe abd pain with vag bleeding LMP 12/03/2018. History of left oophorectomy 05/2018. History of fibroids. No hormone replacement therapy. TECHNIQUE: Ultrasound of the pelvis using transabdominal and transvaginal imaging PRIORS: Ultrasound pelvis 07/09/2018 FINDINGS: Uterus: Uterus is enlarged in size and normal and homogeneous in echogenicity. The uterus measures 9.9 x 6.1 x 6.4 cm in size. At least 3 individual isoechoic fibroids are noted within the uterus. The largest fibroid located in the right side of the fundus/body junction measuring 4.0 x 2.4 x 3.2 cm. The 2nd is in the left side of the uterine body measuring 3.0 x 1.5 x 1.8 cm. The 3rd is in the left side of the uterine body measuring 1.6 x 1.4 x 1.4 cm. Endometrial stripe: Abnormal and increased in thickness measuring 25.2 mm. Ovaries: Left ovary has been surgically removed. The right ovary appears normal in size and echogenicity with normal blood flow. The right ovary measures 3.5 x 1.9 x 2.4 cm in size. There is a complex rounded cystic focus in the right ovary measured 2.3 x 1.4 x 1.1 cm. Other: There is no evidence for solid adnexal mass seen. Trace free fluid in the cul-de-sac is seen. IMPRESSION: 1. Enlarged uterus containing at least 3 distinct fibroids 2. abnormal thickening of the endometrial stripe. Endometrial hyperplasia and neoplasm are included in the differential 3. Prior left oophorectomy 4. Complex cystic focus in the right ovary, probably benign. Transcribed By: [facility] Dictated By: PUJA KENT MD Electronically Authenticated By: PUJA KENT MD Signed Date/Time: 12/04/181846 DD/ 48 TD/TT: 12/04/181848 Critical care attestation.: If time is entered above; I have spent that time in minutes in the direct care of this critically ill patient, excluding procedure time. ED Disposition Clinical Impression: Ovarian cyst, Pelvic pain, Fibroid Disposition: - TO HOME OR SELFCARE Is pt being admited?: No Condition: Stable Instructions: Uterine Fibroids (ED), Abdominal Pain (ED) Prescriptions: Ketorolac [Toradol] 10 mg PO Q6H PRN #20 tablet PRN Reason: Pain Forms: Work/School Release Form(ED)
[2018-12-04 16:23] LABS: Basophils % (Auto) 0.4 % (0.0-1.8); Eosinophils % (Auto) 0.4 % (0.0-4.3); Hematocrit 36.4 % (30.3-42.9); Hemoglobin 11.4 gm/dl (10.1-14.3); Lymphocytes % (Auto) 17.7 % (13.4-35.0); Mean Corpuscular HGB Conc 31 % (30-34); Mean Corpuscular Volume 76 fl (79-97); Monocytes # (Auto) 0.7 K/mm3 (0.0-0.8); Monocytes % (Auto) 6.6 % (0.0-7.3); Platelet Count 353 K/mm3 (140-440); Red Blood Count 4.78 M/mm3 (3.65-5.03); Red Cell Distribution Width 13.7 % (13.2-15.2)
[2018-12-04 16:45] LABS: BUN/Creatinine Ratio 12; Blood Urea Nitrogen 7 mg/dL (7-17); Calcium 8.6 mg/dL (8.4-10.2); Hemolysis Index 2
--- NOTE | 2018-12-04 18:47 | Ultrasound Report ---
FINAL REPORT EXAM: US PELVIC COMPLETE HISTORY: severe abd pain with vag bleeding LMP 12/03/2018. History of left oophorectomy 05/2018. His tory of fibroids. No hormone replacement therapy. TECHNIQUE: Ultrasound of the pelvis using transabdominal and transvaginal imaging PRIORS: Ultrasound pelvis 07/09/2018 FINDINGS: Uterus: Uterus is enlarged in size and normal and homogeneous in echogenicity. The uterus measures 9. 9 x 6.1 x 6.4 cm in size. At least 3 individual isoechoic fibroids are noted within the uterus. The l argest fibroid located in the right side of the fundus/body junction measuring 4.0 x 2.4 x 3.2 cm. Th e 2nd is in the left side of the uterine body measuring 3.0 x 1.5 x 1.8 cm. The 3rd is in the left si de of the uterine body measuring 1.6 x 1.4 x 1.4 cm. Endometrial stripe: Abnormal and increased in thickness measuring 25.2 mm. Ovaries: Left ovary has been surgically removed. The right ovary appears normal in size and echogenic ity with normal blood flow. The right ovary measures 3.5 x 1.9 x 2.4 cm in size. There is a complex rounded cystic focus in the right ovary measured 2.3 x 1.4 x 1.1 cm. Other: There is no evidence for solid adnexal mass seen. Trace free fluid in the cul-de-sac is seen. IMPRESSION: 1. Enlarged uterus containing at least 3 distinct fibroids 2. abnormal thickening of the endometrial stripe. Endometrial hyperplasia and neoplasm are included i n the differential 3. Prior left oophorectomy 4. Complex cystic focus in the right ovary, probably benign.
[2018-12-04] MEDS ORDERED: PERCOCET 5/325 PO ONE (22:13)
[2018-12-04 22:32] VITALS: BP 109/65
== END 2018-12-04 22:32 | disposition home or self-care (01) ==
LOC: ED 14:39
DX: N93.9 Abnormal uterine and vaginal bleeding, unspecified (principal); D25.9 Leiomyoma of uterus, unspecified; Z88.0 Allergy status to penicillin; F17.200 Nicotine dependence, unspecified, uncomplicated
CPT/HCPCS: 36415; 76830; 76856; 80048; 84703; 85025; 96374; 96375; 99284; J1885; J2270; J2405; J7030